=== PATIENT | female | born 1970 | race Caucasian/White ===

== ENCOUNTER → 2017-08-02 | Outpatient (CLI) | payer BC | LOC: RAD 10:51 | PROVIDERS: ATTEND Nurse Practitioner Family | DX: Z53.8 Procedure and treatment not carried out for other reasons (principal); R53.83 Other fatigue ==

== ENCOUNTER → 2017-08-05 | Outpatient (CLI) | payer BC ==
[2017-08-05] MEDS: GADOBUTROL 10 MMOL/10 ML (GADAVIST) VIAL IV ONE (14:38)
--- NOTE | 2017-08-05 15:46 | Diagnostic Imaging Report ---
PROCEDURE: MR imaging of the brain with and without contrast. TECHNIQUE: Multiplanar, multisequence MR imaging of the brain was performed with and without contrast. INDICATION: Stuttering. Chronic headaches. COMPARISON: None. FINDINGS: Examination limited by motion artifact. No abnormal intracranial signal, enhancement, restricted water diffusion or hemosiderin deposition. Partially empty sella. Morphology is otherwise unremarkable including the major midline structures, posterior fossa and cerebellar pontine angle. The orbits are negative on this nondedicated exam. No hydrocephalus or extra-axial fluid collections. Normal intracranial flow voids. The paranasal sinuses and mastoids are clear. Normal bone marrow signal. IMPRESSION: 1. Examination limited by motion artifact. 2. Normal MRI of the brain without and with IV contrast. Dictated by: Dictated on workstation # [id number]
== END ==
LOC: RAD 12:47
PROVIDERS: ATTEND Nurse Practitioner Family
DX: F80.81 Childhood onset fluency disorder (principal); R51 Headache; R53.83 Other fatigue
CPT/HCPCS: 70553

== ENCOUNTER → 2017-11-16 | Outpatient (CLI) | payer BC ==
--- NOTE | 2017-11-16 12:47 | Diagnostic Imaging Report ---
EXAM: DEXA scan INDICATION: Screening for osteoporosis COMPARISON: There are no prior studies available for comparison. FINDINGS: The bone mineral density in the hips and spine was measured. The T score for the spine is -1.1. This does indicate mild osteopenia. The T score for the left hip is 0.1 and for the right hip -0.4. These values are within normal limits. IMPRESSION: The bone mineral density in the hips is within normal limits but there is mild osteopenia of the spine. Dictated by: Dictated on workstation # [id number]
== END ==
LOC: RAD 11:19
PROVIDERS: ATTEND Nurse Practitioner Family
DX: M81.0 Age-related osteoporosis without current pathological fracture (principal); M85.88 Other specified disorders of bone density and structure, other site
CPT/HCPCS: 77080

== ENCOUNTER 2017-12-18 10:43 | Emergency (ER) | payer BC ==
[~2017-12-18] VITALS: Ht 152.4 cm; Wt 90.7 kg
--- OUTSIDE RECORDS SUMMARY | 2017-12-18 10:47 | XMS REPORT | CCD ---
Author Author KEISHA CAZARES Unknown Address [address] [place] [address] Care Team Providers Care Vet Tech Name Role Phone MOORE, AMBER DO Attphys MOORE, AMBER DO Prisurg Allergies Unknown or Not Available. Active Medications Unknown or Not Available. Problems Unknown or Not Available. Procedures Procedure Code Procedure Type Date CT ABD AND PELVIS W/O CONTRAST 806816494 SNOMED CT 2016 CULTURE BLOOD 64613356 SNOMED CT 07/03/2016 LACTIC ACID 2346974 SNOMED CT 07/03/2016 C REACTIVE PROTEIN 19589779 SNOMED CT 07/03/2016 UA ROUTINE C&S IF IND 118858437 SNOMED CT 07/03/2016 COMPREHENSIVE METABOLIC PANEL 614017851 SNOMED CT 2016 CBC W/ AUTO DIFF (RFLX MAN DIFF IF IND) 3482635 SNOMED CT 07/03/2016 ^UA WITH MICRO 723996444 SNOMED CT 07/03/2016 ^CBC W/ MANUAL DIFF 48088097 SNOMED CT 07/03/2016 Results COMPREHENSIVE METABOLIC PANEL - Collect Date/Time: 07/03/2016 17:25 Test Name Code Test Result Test Units Test Ref Range GLUCOSE 2345-7 124 MG/DL L=70 H=100 SODIUM 2951-2 139 MEQ/L L=135 H=148 POTASSIUM 2823-3 4.1 MEQ/L L=3.5 H=5.3 CHLORIDE 2075-0 104 MEQ/L L=96 H=110 CO2 2028-9 23 MEQ/L L=22 H=29 BUN 3094-0 8 MG/DL L=8 H=22 CREATININE 2160-0 0.8 MG/DL L=0.6 H=1.6 SGOT/AST 1920-8 33 IU/L L=10 H=40 SGPT/ALT 1742-6 50 IU/L L=8 H=54 ALK PHOS 6768-6 62 IU/L L=35 H=115 TOTAL PROTEIN 2885-2 7.3 G/DL L=5.5 H=8.5 ALBUMIN 1751-7 4.2 G/DL L=3.1 H=5.4 TOTAL BILI 1975-2 0.3 MG/DL L=0.0 H=1.5 CALCIUM 10917-4 9.1 MG/DL L=8.2 H=10.6 AGE 45 yrs GFR NonAA 78 GFR AA 95 eGFR >60 N/A eGFR AA* >60 N/A CBC W/ AUTO DIFF (RFLX MAN DIFF IF IND) - Collect Date/Time: 07/03/2016 17:25 Test Name Code Test Result Test Units Test Ref Range WBC 49133-3 5.1 TH/CMM L=4.5 H=10.8 RBC 789-8 5.29 ML/CMM L=4.20 H=5.40 HGB 718-7 15.3 G/DL L=12.0 H=16.0 HCT 4544-3 46.5 % L=37.0 H=47.0 MCV 88 FL L=81 H=99 MCH 28.9 PG L=27.0 H=33.0 MCHC 32.9 G/DL L=31.0 H=36.0 RDW SD 42 FL L=36 H=50 RDW CV 13.1 % L=0.0 H=14.8 MPV 9.6 FL L=9.3 H=12.5 PLT 777-3 197 TH/CMM L=130 H=440 NRBC# 0.00 TH/CMM L=0.00 H=0.00 NRBC% 0.0 /100WBC L=0.0 H=2.0 %NEUT 71.8 % %LYMP 18.3 % %MONO 8.9 % %EOS 0.4 % %BASO 0.4 % #NEUT 3.64 TH/CMM L=2.10 H=8.20 #LYMP 0.93 TH/CMM L=0.90 H=5.20 #MONO 0.45 TH/CMM L=0.16 H=1.00 #EOS 0.02 TH/CMM L=0.00 H=0.80 #BASO 0.02 TH/CMM L=0.00 H=0.20 SEGS 53 % BANDS 14 % LYMPHS 23 % MONOS 10 % MANUAL DIFF SEE BELOW N/A UA ROUTINE C&S IF IND - Collect Date/Time: 07/03/2016 19:08 Test Name Code Test Result Test Units Test Ref Range COLOR YELLOW N/A NL: YELLOW APPEARANCE CLEAR N/A NL: CLEAR SPEC GRAV 1.015 N/A NL: 1.002 - 1.022 pH 8.0 N/A NL: 5 - 9 PROTEIN NEGATIVE N/A NL: NEGATIVE mg/dl GLUCOSE NEGATIVE N/A NL: NEGATIVE mg/dl KETONE NEGATIVE N/A NL: NEGATIVE mg/dl BILIRUBIN NEGATIVE N/A NL: NEGATIVE BLOOD SMALL N/A NL: NEGATIVE NITRITE NEGATIVE N/A NL: NEGATIVE LEUK SCREEN NEGATIVE N/A NL: NEGATIVE MICRO INDICATED? SEE BELOW N/A WBC/HPF RARE N/A NL: NEGATIVE RBC/HPF 10-20 N/A NL: NEGATIVE CASTS/LPF NEGATIVE N/A NL: NEGATIVE CRYSTALS NEGATIVE N/A NL: NEGATIVE MUCOUS THRDS FEW N/A NL: NEGATIVE BACTERIA FEW N/A NL: NEGATIVE EPITH CELLS FEW SQUAMOUS N/A NL: NEGATIVE TRICHOMONAS NEGATIVE N/A NL: NEGATIVE YEAST NEGATIVE N/A NL: NEGATIVE CULT SET UP? NO N/A TICK PANEL - Collect Date/Time: 07/03/2016 17:25 Test Name Code Test Result Test Units Test Ref [place] [address]-4 <0.91 ISR 0.00-0.90 Lyme Disease Ab, Quant,IgM 5064-1 <0.80 index 0.00- 0.79 [facility] Spotted Fever,IgM 72467-5 0.27 index 0.00 -0.89 RMSF, IgG, EIA 63497-2 Negative N/A Negative E. chaffeensis ([facility]) IgGTiter 50774-0 Negative N/A Neg:<1:64 E. chaffeensis ([facility]) IgMTiter 56452-0 Negative N/A Neg:<1:20 C REACTIVE PROTEIN - Collect Date/Time: 07/03/2016 17:25 Test Name Code Test Result Test Units Test Ref Range C REACTIVE PROTEIN 1987- 4.8 MG/DL L=0.0 H= 1.0 LACTIC ACID - Collect Date/Time: 07/03/2016 17:25 Test Name Code Test Result Test Units Test Ref Range LACTIC ACID 2524-7 1.2 mmol/L L=0.5 H=1.6 Function Status Unknown or Not Available. History of Immunizations Unknown or Not Available. Plan of Treatment Unknown or Not Available. Social History Smoking Status Code Start Date End Date Current some day smoker [id number] Vital Signs Unknown or Not Available. Function Status Unknown or Not Available. Goals Unknown or Not Available. ASSESSMENTS Unknown or Not Available. Health Concerns Section Unknown or Not Available.
--- OUTSIDE RECORDS SUMMARY | 2017-12-18 10:47 | XMS REPORT | CCD ---
Author Author KEISHA CAZARES Unknown Address [address] [place], [place] [id number] Care Team Providers Care Enterprise Resource Planning Consultant Name Role Phone LAURA BREEN MD Attphys LAURA BREEN MD Prisurg Vital Signs Unknown or Not Available. Allergies Unknown or Not Available. Procedures Procedure Code Procedure Type Date CX CHEST [address] 12/02/[address] 12/02/[address] 12/02/2015 TROPONIN-I ADV 271341760 SNOMED CT 12/02/2015 COMPREHENSIVE METABOLIC PANEL 674180070 SNOMED CT 2015 CBC W/ AUTO DIFF (RFLX MAN DIFF IF IND) 3848435 SNOMED CT 12/02/2015 ^CBC W/AUTO DIFF 7680846 SNOMED CT 12/02/2015 History of Immunizations Unknown or Not Available. Problems Unknown or Not Available. Results COMPREHENSIVE METABOLIC PANEL - Collect Date/Time: 12/02/2015 01:35 Test Name Code Test Result Test Units Test Ref Range GLUCOSE 2345-7 161 MG/DL L=70 H=100 SODIUM 2951-2 142 MEQ/L L=135 H=148 POTASSIUM 2823-3 3.6 MEQ/L L=3.5 H=5.3 CHLORIDE 2075-0 108 MEQ/L L=96 H=110 CO2 2028-9 21 MEQ/L L=22 H=29 BUN 3094-0 11 MG/DL L=8 H=22 CREATININE 2160-0 0.8 MG/DL L=0.6 H=1.6 SGOT/AST 1920-8 16 IU/L L=10 H=40 SGPT/ALT 1742-6 28 IU/L L=8 H=54 ALK PHOS 6768-6 69 IU/L L=35 H=115 TOTAL PROTEIN 2885-2 6.7 G/DL L=5.5 H=8.5 ALBUMIN 1751-7 4.1 G/DL L=3.1 H=5.4 TOTAL BILI 1975-2 0.2 MG/DL L=0.0 H=1.5 CALCIUM 60956-5 9.1 MG/DL L=8.2 H=10.6 AGE 45 yrs GFR NonAA 78 GFR AA 95 eGFR >60 N/A eGFR AA* >60 N/A CBC W/ AUTO DIFF (RFLX MAN DIFF IF IND) - Collect Date/Time: 12/02/2015 01:35 Test Name Code Test Result Test Units Test Ref Range WBC 30675-7 10.1 TH/CMM L=4.5 H=10.8 RBC 789-8 5.08 ML/CMM L=4.20 H=5.40 HGB 718-7 15.0 G/DL L=12.0 H=16.0 HCT 4544-3 44.9 % L=37.0 H=47.0 MCV 88 FL L=81 H=99 MCH 29.5 PG L=27.0 H=33.0 MCHC 33.4 G/DL L=31.0 H=36.0 RDW SD 42 FL L=36 H=50 RDW CV 12.9 % L=0.0 H=14.8 MPV 10.1 FL L=9.3 H=12.5 PLT 777-3 288 TH/CMM L=130 H=440 NRBC# 0.00 TH/CMM L=0.00 H=0.00 NRBC% 0.0 /100WBC L=0.0 H=2.0 %NEUT 50.5 % %LYMP 39.6 % %MONO 6.6 % %EOS 2.5 % %BASO 0.5 % #NEUT 5.09 TH/CMM L=2.10 H=8.20 #LYMP 3.98 TH/CMM L=0.90 H=5.20 #MONO 0.66 TH/CMM L=0.16 H=1.00 #EOS 0.25 TH/CMM L=0.00 H=0.80 #BASO 0.05 TH/CMM L=0.00 H=0.20 MANUAL DIFF NOT IND N/A BNP - Collect Date/Time: 12/02/2015 01:35 Test Name Code Test Result Test Units Test Ref Range BNP 84995-3 41 PG/ML L=0 H=100 TROPONIN-I ADV - Collect Date/Time: 12/02/2015 01:35 Test Name Code Test Result Test Units [place] [address]-6 <0.04 ng/mL L=0.04 H= 0.40 TSH - Collect Date/Time: 12/02/2015 01:35 Test Name Code Test Result Test Units Test Ref Range TSH 99571-1 1.69 mIU/L L=0.35 H=4.94 Active Medications Unknown or Not Available. Medications Administered During Visit Unknown or Not Available. Encounters Encounter Diagnosis Diagnosis Code Start Date Paroxysmal atrial fibrillation [id number] 12/02/2015 Social History Smoking Status Code Start Date End Date Current some day smoker [id number] Patient Decision Aids Unknown or Not Available. Discharge Instructions You were admitted to [facility] on 12/02/2015 01:05 with a principal diagnosis of Paroxysmal atrial fibrillation You had the following tests done: BNP CBC W/ AUTO DIFF (RFLX MAN DIFF IF IND) COMPREHENSIVE METABOLIC PANEL TROPONIN-I ADV TSH You were discharged from [facility] on 12/02/2015 03:18 Should you have any questions prior to discharge, please contact a member of your healthcare team. If you have left the hospital and have any questions, please contact your primary care physician. Chief Complaint and Reason For Visit Chief Complaint Date of Onset PALPITATIONS Function Status Unknown or Not Available. Plan of Care Unknown or Not Available. Referral/Transition of Care Unknown or Not Available.
--- OUTSIDE RECORDS SUMMARY | 2017-12-18 10:47 | XMS REPORT | CCD ---
Author Author LISA ROWAN Organization Unknown Address [address] [place] [address] Care Team Providers Care Data Processing Equipment Repairer Name Role Phone AMBER MOORE Attphys LAURA BREEN MD Prisurg Allergies Unknown or Not Available. Active Medications Unknown or Not Available. Problems Unknown or Not Available. Procedures Procedure Code Procedure Type Date CT ABD AND PELVIS W/O CONTRAST 798612404 [facility] CT 2015 ABDOMEN ONE VIEW 000159730 [facility] CT 11/21/2015 CX CHEST [address] 11/21/2015 C REACTIVE PROTEIN 17695861 [facility] CT 11/21/2015 CULTURE BLOOD 73154761 SNOMED CT 11/21/2015 LACTIC ACID 5840797 SNOM[address] 11/21/[address] 11/21/2015 UA ROUTINE C&S IF IND 825689616 SNOMED CT 11/21/2015 TROPONIN-I ADV 669825155 [facility] CT 11/21/2015 COMPREHENSIVE METABOLIC PANEL 489074683 SNOMED CT 2015 CBC W/ AUTO DIFF (RFLX MAN DIFF IF IND) 3190361 SNOMED CT 11/21/2015 ^UA WITH MICRO 671914652 SNOMED CT 11/21/2015 ^CBC W/AUTO DIFF 9066596 SNOMED CT 11/21/2015 Results COMPREHENSIVE METABOLIC PANEL - Collect Date/Time: 11/21/2015 19:05 Test Name Code Test Result Test Units Test Ref Range GLUCOSE 2345-7 141 MG/DL L=70 H=100 SODIUM 2951-2 141 MEQ/L L=135 H=148 POTASSIUM 2823-3 3.4 MEQ/L L=3.5 H=5.3 CHLORIDE 2075-0 108 MEQ/L L=96 H=110 CO2 2028-9 20 MEQ/L L=22 H=29 BUN 3094-0 14 MG/DL L=8 H=22 CREATININE 2160-0 0.8 MG/DL L=0.6 H=1.6 SGOT/AST 1920-8 18 IU/L L=10 H=40 SGPT/ALT 1742-6 28 IU/L L=8 H=54 ALK PHOS 6768-6 68 IU/L L=35 H=115 TOTAL PROTEIN 2885-2 6.8 G/DL L=5.5 H=8.5 ALBUMIN 1751-7 4.1 G/DL L=3.1 H=5.4 TOTAL BILI 1975-2 0.4 MG/DL L=0.0 H=1.5 CALCIUM 43352-5 9.2 MG/DL L=8.2 H=10.6 AGE 45 yrs GFR NonAA 78 GFR AA 95 eGFR >60 N/A eGFR AA* >60 N/A MAGNESIUM - Collect Date/Time: 11/21/2015 19:05 Test Name Code Test Result Test Units Test Ref Range MAGNESIUM 85511-9 2.1 MG/DL L=1.7 H=2.8 CBC W/ AUTO DIFF (RFLX MAN DIFF IF IND) - Collect Date/Time: 11/21/2015 19:05 Test Name Code Test Result Test Units Test Ref Range WBC 60265-5 12.0 TH/CMM L=4.5 H=10.8 RBC 789-8 4.99 ML/CMM L=4.20 H=5.40 HGB 718-7 14.6 G/DL L=12.0 H=16.0 HCT 4544-3 43.8 % L=37.0 H=47.0 MCV 88 FL L=81 H=99 MCH 29.3 PG L=27.0 H=33.0 MCHC 33.3 G/DL L=31.0 H=36.0 RDW SD 42 FL L=36 H=50 RDW CV 13.1 % L=0.0 H=14.8 MPV 10.4 FL L=9.3 H=12.5 PLT 777-3 290 TH/CMM L=130 H=440 NRBC# 0.00 TH/CMM L=0.00 H=0.00 NRBC% 0.0 /100WBC L=0.0 H=2.0 %NEUT 60.3 % %LYMP 30.4 % %MONO 6.8 % %EOS 1.8 % %BASO 0.4 % #NEUT 7.24 TH/CMM L=2.10 H=8.20 #LYMP 3.65 TH/CMM L=0.90 H=5.20 #MONO 0.81 TH/CMM L=0.16 H=1.00 #EOS 0.22 TH/CMM L=0.00 H=0.80 #BASO 0.05 TH/CMM L=0.00 H=0.20 MANUAL DIFF NOT IND N/A UA ROUTINE C&S IF IND - Collect Date/Time: 11/21/2015 19:30 Test Name Code Test Result Test Units Test Ref Range COLOR YELLOW N/A NL: YELLOW APPEARANCE CLEAR N/A NL: CLEAR SPEC GRAV >=1.030 N/A NL: 1.002 - 1.022 pH 6.0 N/A NL: 5 - 9 PROTEIN NEGATIVE N/A NL: NEGATIVE mg/dl GLUCOSE NEGATIVE N/A NL: NEGATIVE mg/dl KETONE TRACE N/A NL: NEGATIVE mg/dl BILIRUBIN NEGATIVE N/A NL: NEGATIVE BLOOD MODERATE N/A NL: NEGATIVE NITRITE NEGATIVE N/A NL: NEGATIVE LEUK SCREEN NEGATIVE N/A NL: NEGATIVE MICRO INDICATED? SEE BELOW N/A WBC/HPF RARE N/A NL: NEGATIVE RBC/HPF 0-5 N/A NL: NEGATIVE CASTS/LPF 1+ HYALINE N/A NL: NEGATIVE CRYSTALS NEGATIVE N/A NL: NEGATIVE MUCOUS THRDS 1+ N/A NL: NEGATIVE BACTERIA FEW N/A NL: NEGATIVE EPITH CELLS FEW SQUAMOUS N/A NL: NEGATIVE TRICHOMONAS NEGATIVE N/A NL: NEGATIVE YEAST NEGATIVE N/A NL: NEGATIVE CULT SET UP? NO N/A C REACTIVE PROTEIN - Collect Date/Time: 11/21/2015 19:05 Test Name Code Test Result Test Units Test Ref Range C REACTIVE PROTEIN 1988-5 2.0 MG/DL L=0.0 H= 1.0 TROPONIN-I ADV - Collect Date/Time: 11/21/2015 19:05 Test Name Code Test Result Test Units [place] [address]-2 <0.04 ng/mL L=0.04 H= 0.40 LACTIC ACID - Collect Date/Time: 11/21/2015 19:05 Test Name Code Test Result Test Units Test Ref Range LACTIC ACID 2524-7 1.7 mmol/L L=0.5 H=1.6 Function Status Unknown or Not Available. History of Immunizations Unknown or Not Available. Plan of Treatment Unknown or Not Available. Social History Smoking Status Code Start Date End Date Current some day smoker [id number] Vital Signs Unknown or Not Available. Function Status Unknown or Not Available. Goals Unknown or Not Available. ASSESSMENTS Unknown or Not Available. Health Concerns Section Unknown or Not Available.
[2017-12-18] MEDS ORDERED: NS IV 1000 ML 1,000 ML IV SCH (11:06)
--- NOTE | 2017-12-18 11:14 | ED Abdominal Pain ---
General Chief Complaint: Abdominal/GI Problems Stated Complaint: N/V Nursing Triage Note: p states three weeks ago she began to have foul smelling belching that progressed into pain after eating in the RUQ. today the pt began to develope nausea and vomiting with the pain. upon presentation denies nausea. Sepsis Screen: No Definite Risk Source of Information: Patient Exam Limitations: No Limitations History of Present Illness Date Seen by Provider: Dec 18, 2017 Time Seen by Provider: 10:56 Initial Comments The patient presents to the ER by private conveyance with her and chief complaint that she's been having some abdominal pain in her epigastric radiating to her right upper quadrant off-and-on for the past 3-4 weeks. She says about 4-6 weeks ago she started taking a new injectable class of antihyperglycemic known as GLP1 receptor agonists and she is on her third brand. She did not like the style of injector on the second one in the first one she had some issues tolerating it. She did go see her doctor on Monday and they did labs and urine and told her everything looked okay. She's continued to have nausea vomiting and worsening pain and so she was instructed to go to the ER if this occurred. She says her blood sugars were getting better on the injectables but for the past 2 days they've been high as high as 160 and an hour later down to 60 with sweats, cool clammy feeling. She fixed by eating something. She also takes metformin twice daily. She has a history of C-sections , hysterectomy and both of her ovaries removed for large cysts. She had her hysterectomy done for fibroid tumors. She also has endometriosis. She has not had any other abdominal surgeries. She's had no fevers but she's measured her temperature to be as high as 99.6. She's not having any nausea presently but her pain is about a 7 out of 10. She's been using tramadol for her pain. She does not feel that this helped much. She has had a colonoscopy but she does not member any mention of diverticulosis. She's never had an EGD. She does have a history of GERD and has been using omeprazole for years and her PCP started her on Carafate 4 days ago. She also states she has a history of atrial fibrillation and is not on any blood thinners but follows with the urgent care physician assistant that comes down and also be go from [facility]. Allergies and Home Medications Allergies Coded Allergies: No Known Drug Allergies (Unverified , 08/05/17) Home Medications Ondansetron 4 Mg Tab.rapdis, 4 MG PO Q6H PRN for NAUSEA/VOMITING Prescribed by: MAYA LAY on 12/18/17 0748 Patient Home Medication List Home Medication List Reviewed: Yes Review of Systems Review of Systems Constitutional: No chills, No diaphoresis; malaise EENTM: No Blurred Vision, No Double Vision Respiratory: Denies Cough, Denies Shortness of Air Cardiovascular: Denies Chest Pain, Denies Lightheadedness Gastrointestinal: Denies Abdomen Distended; Abdominal Pain; Denies Constipated , Denies Diarrhea; Nausea, Vomiting Genitourinary: Denies Burning, Denies Discharge Musculoskeletal: No back pain, No joint pain Skin: No pruritus, No rash Psychiatric/Neurological: Denies Headache, Denies Numbness Past Zdkivok-Kblaff-Pagfmd Hx Patient Social History Alcohol Use: Denies Use Recreational Drug Use: No Smoking Status: Never a Smoker Recent Foreign Travel: No Contact w/Someone Who Travel: No Recent Infectious Disease Expo: No Past Medical History : No LINESPERSON 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 oz. [id number]; BMI Method:Stated General Appearance: WD/WN, no apparent distress HEENT: PERRL/EOMI, pharynx normal Neck: non-tender, normal inspection Respiratory: chest non-tender, lungs clear, normal breath sounds, no respiratory distress, no accessory muscle use Cardiovascular: normal peripheral pulses, regular rate, rhythm, no edema Gastrointestinal: normal bowel sounds, guarding; No rebound; tenderness ( moderate to severe with Phillips sign) Progress/Results/Core Measures Results/Orders Lab Results Laboratory Tests Test 12/18/17 11:28 Range/Units White Blood Count 12.9 H 4.3-11.0 10^3/uL Red Blood Count 5.65 4.35-5.85 10^6/uL Hemoglobin 15.4 11.5-16.0 G/DL Hematocrit 45 35-52 % Mean Corpuscular Volume 80 80-99 FL Mean Corpuscular Hemoglobin 27 25-34 PG Mean Corpuscular Hemoglobin Concent 34 32-36 G/DL Red Cell Distribution Width 15.7 H 10.0-14.5 % Platelet Count 409 H 130-400 10^3/uL Mean Platelet Volume 10.6 H 7.4-10.4 FL Neutrophils (%) (Auto) 62 42-75 % Lymphocytes (%) (Auto) 25 12-44 % Monocytes (%) (Auto) 7 0-12 % Eosinophils (%) (Auto) 5 0-10 % Basophils (%) (Auto) 1 0-10 % Neutrophils # (Auto) 8.0 H 1.8-7.8 X 10^3 Lymphocytes # (Auto) 3.3 1.0-4.0 X 10^3 Monocytes # (Auto) 1.0 0.0-1.0 X 10^3 Eosinophils # (Auto) 0.6 H 0.0-0.3 10^3/uL Basophils # (Auto) 0.1 0.0-0.1 10^3/uL Sodium Level 136 135-145 MMOL/L Potassium Level 4.2 3.6-5.0 MMOL/L Chloride Level 102 98-107 MMOL/L Carbon Dioxide Level 22 21-32 MMOL/L Anion Gap 12 5-14 MMOL/L Blood Urea Nitrogen 6 L 7-18 MG/DL Creatinine 0.75 0.60-1.30 MG/DL Estimat Glomerular Filtration Rate > 60 BUN/Creatinine Ratio 8 Glucose Level 96 70-105 MG/DL Calcium Level 9.5 8.5-10.1 MG/DL Corrected Calcium 9.3 8.5-10.1 MG/DL Magnesium Level 2.6 H 1.8-2.4 MG/DL Total Bilirubin 0.4 0.1-1.0 MG/DL Aspartate Amino Transf (AST/SGOT) 20 5-34 U/L Alanine Aminotransferase (ALT/SGPT) 26 0-55 U/L Alkaline Phosphatase 51 40-136 U/L Total Protein 7.8 6.4-8.2 GM/DL Albumin 4.3 3.2-4.5 GM/DL Lipase 7 L 8-78 U/L My Orders Orders - ALIREZA,MAYA J Cbc With Automated Diff (12/18/17 11:06) Comprehensive Metabolic Panel (12/18/17 11:06) Lipase (12/18/17 11:06) Magnesium (12/18/17 11:06) Saline Lock/Iv-Start (12/18/17 11:06) Ns Iv 1000 Ml (Sodium Chloride 0.9%) (12/18/17 11:06) Ketorolac Injection (Toradol Injection) (12/18/17 11:15) Ct Abdomen/Pelvis W (12/18/17 11:19) Iohexol Injection (Omnipaque 350 Mg/Ml 1 (12/18/17 11:30) Ns (Ivpb) (Sodium Chloride 0.9%) (12/18/17 11:30) Ondansetron Injection (Zofran Injectio (12/18/17 12:45) Lidocaine 2% Viscous 15 Ml (Xylocaine Vi (12/18/17 12:45) Famotidine Tablet (Pepcid Tablet) (12/18/17 12:43) Antacid Suspension (Mylanta Suspension (12/18/17 12:45) Medications Given in ED Current Medications Medications Dose Ordered Sig/Greg Route Start Time Stop Time Status Last Admin Dose Admin Al Hydrox/Mg Hydrox/Simethicone 30 ml ONCE ONCE PO 12/18/17 12:45 12/18/17 12:46 DC 12/18/17 12:57 30 ML Ketorolac Tromethamine 15 mg ONCE ONCE IVP 12/18/17 11:15 12/18/17 11:16 DC 12/18/17 11:39 15 MG Lidocaine HCl 15 ml ONCE ONCE PO 12/18/17 12:45 12/18/17 12:46 DC 12/18/17 12:57 15 ML Ondansetron HCl 4 mg ONCE ONCE IVP 12/18/17 12:45 12/18/17 12:46 DC 12/18/17 12:57 4 MG Vital Signs/I&O 12/18/17 10:51 Temp 98.8 Pulse 88 Resp 20 B/P (MAP) 149/93 (111) Blood Pressure Mean: 111 Progress Progress Note #1: Time: 11:14 Progress Note IV fluids, labs included lipase and magnesium, Toradol for pain to start. She's declining anything for nausea right now. We have offered to do a UA but she says she just had checked Monday and is not having any symptoms. She does have right upper quadrant pains were in a start with a CT with contrast of her abdomen and pelvis to observe the gallbladder, pancreas and colon. She does not have any fever or tachycardia today. The other consideration would be that her symptoms started shortly after using the GLP1 agonists which are known to have pretty prominent GI symptoms similar to what she describes. Her symptoms are certainly after eating but they seemed to come right after eating as opposed to an hour later. Progress Note #2: Time: 12:[address] imaging is unrevealing. Labs are unrevealing of any pathology. Her all 3 cell lines are high or on the upper limit of normal which could be from her nausea vomiting or could be from dehydration however the BUNs is not elevated. Clinical exam she does look a little dry. We put some fluids and antinausea medicine and since is nothing acutely going on with recommend she follow up working up her gallbladder outpatient with her primary care doctor. Would also recommend some nausea medicine such as Zofran instead of Phenergan during the day and finally if nothing else was found acutely the primary care team could consider the GLP1 agonists. Her nausea has significantly improved but she still having a little bit sore give another round of Zofran and a GI cocktail to help us examine the esophagus and stomach lining see if this is causing her pain. She says her pain has improved significantly as well and is almost gone but still dull and aching about 2-3 out of 10. Progress Note #3: Time: 13:47 Progress Note The patient's nausea is gone and she notes that the GI cocktail made her pain go away completely and nearly immediately. We will recommend that she follow up with the PCP to discuss setting up an EGD outpatient. Diagnostic Imaging Diagonstic Imaging: CT (with contrast) Plain Films/CT/US/NM/MRI: abdomen, pelvis Comments NAME: CAROLINA FIELDS [facility] REC#: [id number] PT STATUS: REG ER : 1970 PHYSICIAN: MAYA LAY MD ADMIT DATE: 12/18/17/ER Draft Date of Exam:12/18/17 CT ABDOMEN/PELVIS W INDICATION: Abdominal pain x3 weeks with vomiting and low-grade fever. CT of the abdomen and pelvis obtained with IV contrast bolus. There is no prior study for comparison. FINDINGS: The visualized portions of the lung bases are clear. There were no pleural fluid collections. There is no free intraperitoneal air. The liver shows diffuse low-density change compatible with fatty infiltration. There is no focal liver lesion. Gallbladder appears unremarkable. The spleen, adrenals, and pancreas are normal in appearance. Kidneys bilaterally are unremarkable. There is no retroperitoneal mass or adenopathy. There is no ascites or abnormal fluid collection. Visualized bowel loops show no bowel wall thickening or obstruction. The appendix appears normal. There is no pelvic mass or free fluid. Patient appears to have had prior hysterectomy. IMPRESSION: No abdominal mass or abnormal fluid collection. Fatty infiltration of the liver is noted. Evidence of previous hysterectomy. No acute process is visualized in the abdomen or pelvis. Dictated on workstation # [id number] Dict: 12/18/17 1222 Trans: 12/18/17 1228 [id number] Interpreted by: MINAL VÁZQUEZ MD Electronically signed by: Reviewed: Reviewed by Me Departure Impression Primary Impression: Abdominal pain Qualified Codes: R10.11 - Right upper quadrant pain Additional Impressions: Nausea vomiting and diarrhea Gastritis Qualified Codes: K29.00 - Acute gastritis without bleeding Disposition: HOME, SELF-CARE Condition: Improved Departure-Patient Inst. Decision time for Depature: 13:48 Referrals: BRANDT,LOCAL PHYSICIAN (PCP) Primary Care Physician VIDYA YOUNG (Family) Primary Care Physician Patient Instructions: Gastritis (DC) Add. Discharge Instructions: Continue to use your omeprazole and Carafate as prescribed. Take Zantac 1 tablet twice a day for the next 2-4 weeks in addition. If you have nausea you can use Zofran 1 tablet every 6 hours as needed in addition to the Phenergan. Get a follow-up appointment with your primary care doctor in the next 1-2 weeks to continue working up your symptoms with an EGD. If your pain gets worse or you develop fevers above 102.5F or you have intractable nausea vomiting or other worrisome symptoms then you should return to the nearest ER for further evaluation. All discharge instructions reviewed with patient and/or family. Voiced understanding. Scripts Ondansetron (Ondansetron Odt) 4 Mg Tab.rapdis 4 MG PO Q6H PRN for NAUSEA/VOMITING for 14 Days, #12 TAB 0 Refills Prov: MAYA LAY 12/18/17 Work/School Note: Work Release Form Date Seen in the Emergency Department: Dec 18, 2017 Return to Work: Dec 21, 2017 Restrictions: No Restrictions MAYA LAY Dec 18, 2017 11:14
[2017-12-18] MEDS ORDERED: KETOROLAC 30 MG/ML VIAL IVP ONE (11:15)
[2017-12-18] MEDS ORDERED: IOHEXOL 350 MG/ML 100 ML (OMNIPAQUE 350) VIAL IV ONE (11:30)
[2017-12-18] MEDS ORDERED: NS 250 ML (IVPB) BAG IV ONE (11:30)
[2017-12-18 11:39] LABS: BASOPHILS # (AUTO) 0.1 10^3/uL (0.0-0.1); BASOPHILS % (AUTO) 1 % (0-10); EOSINOPHILS # (AUTO) 0.6 10^3/uL (0.0-0.3); EOSINOPHILS % (AUTO) 5 % (0-10); HEMATOCRIT 45 % (35-52); HEMOGLOBIN 15.4 G/DL (11.5-16.0); LYMPHOCYTES # (AUTO) 3.3 X 10^3 (1.0-4.0); LYMPHOCYTES % (AUTO) 25 % (12-44); MEAN CORPUSCULAR HEMOGLOBIN 27 PG (25-34); MEAN CORPUSCULAR HGB CONC 34 G/DL (32-36); MEAN CORPUSCULAR VOLUME 80 FL (80-99); MEAN PLATELET VOLUME 10.6 FL (7.4-10.4); MONOCYTES % (AUTO) 7 % (0-12); NEUTROPHILS % (AUTO) 62 % (42-75); PLATELET COUNT 409 10^3/uL (130-400); RED BLOOD COUNT 5.65 10^6/uL (4.35-5.85); RED CELL DISTRIBUTION WIDTH 15.7 % (10.0-14.5); WHITE BLOOD COUNT 12.9 10^3/uL (4.3-11.0)
[2017-12-18 12:01] LABS: ALANINE AMINOTRANSFERASE 26 U/L (0-55); ALBUMIN 4.3 GM/DL (3.2-4.5); ALKALINE PHOSPHATASE 51 U/L (40-136); BILIRUBIN,TOTAL 0.4 MG/DL (0.1-1.0); BUN/CREATININE RATIO 8; CALCIUM 9.5 MG/DL (8.5-10.1); CARBON DIOXIDE 22 MMOL/L (21-32); CHLORIDE 102 MMOL/L (98-107); CREATININE SERUM 0.75 MG/DL (0.60-1.30); GFR ESTIMATED > 60; GLUCOSE 96 MG/DL (70-105); LIPASE 7 U/L (8-78); MAGNESIUM 2.6 MG/DL (1.8-2.4); POTASSIUM 4.2 MMOL/L (3.6-5.0); SODIUM 136 MMOL/L (135-145); TOTAL PROTEIN 7.8 GM/DL (6.4-8.2)
--- NOTE | 2017-12-18 12:28 | Diagnostic Imaging Report ---
INDICATION: Abdominal pain x3 weeks with vomiting and low-grade fever. CT of the abdomen and pelvis obtained with IV contrast bolus. There is no prior study for comparison. FINDINGS: The visualized portions of the lung bases are clear. There were no pleural fluid collections. There is no free intraperitoneal air. The liver shows diffuse low-density change compatible with fatty infiltration. There is no focal liver lesion. Gallbladder appears unremarkable. The spleen, adrenals, and pancreas are normal in appearance. Kidneys bilaterally are unremarkable. There is no retroperitoneal mass or adenopathy. There is no ascites or abnormal fluid collection. Visualized bowel loops show no bowel wall thickening or obstruction. The appendix appears normal. There is no pelvic mass or free fluid. Patient appears to have had prior hysterectomy. IMPRESSION: No abdominal mass or abnormal fluid collection. Fatty infiltration of the liver is noted. Evidence of previous hysterectomy. No acute process is visualized in the abdomen or pelvis. Dictated by: Dictated on workstation # [id number]
[2017-12-18] MEDS ORDERED: FAMOTIDINE 20 MG (PEPCID) TABLET PO STA (12:43)
[2017-12-18] MEDS ORDERED: LIDOCAINE 2% VISCOUS 15 ML UDC PO ONE (12:45)
[2017-12-18] MEDS ORDERED: ONDANSETRON 4 MG/2 ML (SDV) Z0FRAN IVP ONE (12:45)
[2017-12-18] MEDS ORDERED: ANTACID SUSP 30 ML UDC (MYLANTA) PO ONE (12:45)
[2017-12-18] MEDS ORDERED: ONDA4TAB11 PO (12:48)
[2017-12-18] MEDS ORDERED: HYDR25TA4 (13:52)
[2017-12-18] MEDS ORDERED: OMEP40CA36 (13:52)
[2017-12-18] MEDS ORDERED: BUSP30TA2 (13:52)
[2017-12-18] MEDS ORDERED: METF-397 (13:52)
[2017-12-18] MEDS ORDERED: FLUO20CA25 (13:52)
[2017-12-18] MEDS ORDERED: LINA72CA (13:52)
[2017-12-18] MEDS ORDERED: CLON0.1T (13:52)
[2017-12-18 14:07] VITALS: BP 124/80
== END 2017-12-18 14:07 | disposition home or self-care (01) ==
LOC: EDUNIT# 10:43 → ER 10:44
DX: K29.70 Gastritis, unspecified, without bleeding (principal); K21.9 Gastro-esophageal reflux disease without esophagitis; I48.91 Unspecified atrial fibrillation; Z91.14 Patient's other noncompliance with medication regimen; Z87.448 Personal history of other diseases of urinary system; Z98.890 Other specified postprocedural states; Z90.710 Acquired absence of both cervix and uterus
CPT/HCPCS: 36415; 74177; 80053; 83690; 83735; 85025

== ENCOUNTER 2018-01-01 06:14 | Outpatient (CLI) | payer BC ==
[~2018-01-01] VITALS: Ht 152.4 cm; Wt 90.7 kg
[~2018-01-01 06:14] MED LIST: BUSP30TA2 PO; CLON0.1T PO; FLUO20CA25 PO; HYDR25TA4 PO; LINA72CA PO; METF-397 PO; OMEP40CA36 PO; ONDA4TAB11 PO
[2018-01-01] MEDS ORDERED: SEMA1PEN SQ (12:30)
[2018-01-01] MEDS ORDERED: ORPH100T PO (12:30)
[2018-01-01] MEDS ORDERED: ASPI-586 PO (12:30)
== END 2018-01-01 12:32 | disposition home or self-care (01) ==
LOC: PREOP 06:14
PROVIDERS: ATTEND Surgery
DX: Z01.818 Encounter for other preprocedural examination (principal)

== ENCOUNTER 2018-01-03 09:48 | Day surgery (SDC) | payer BC ==
[~2018-01-03] VITALS: Ht 152.4 cm; Wt 90.7 kg
[~2018-01-03 09:48] MED LIST changes: +ASPI-586 PO; +ORPH100T PO; +SEMA1PEN SQ
[2018-01-03 10:05] VITALS: BP 130/86
[2018-01-03] MEDS ORDERED: NS IV 500 ML 500 ML IV PRN (10:13)
[2018-01-03] MEDS ORDERED: HURRICAINE EXT TUBE (BENZOCAINE) XX PRN (10:15)
[2018-01-03] MEDS ORDERED: fentaNYL INJECTION 100 MCG/2 ML AMP IVP ONE (10:15)
[2018-01-03] MEDS ORDERED: LIDOCAINE JELLY 2% 6 ML SYRINGE MM PRN (10:15)
[2018-01-03] MEDS ORDERED: MIDAZOLAM 2 MG/2 ML (VERSED) VIAL IVP ONE (10:15)
[2018-01-03] MEDS ORDERED: NS IV 500 ML 500 ML ONE (10:24)
--- NOTE | 2018-01-03 11:18 | Conscious Sedation/ASA ---
Conscious Sedation Pre-Proced Time 11:00 ASA Score 2 For ASA 3 and 4: Consider anesthesia and medical clearance. Also, for patients with a history of failed moderate sedation consider anesthesia. Airway Lungs Heart ASA score ASA 1: a normal healthy patient ASA 2: a patient with a mild systemic disease (mid diabetes, controlled hypertension, obesity ASA 3: a patient with a severe systemic disease that limits activity (angina , COPD, prior Myocardial infarction) ASA 4: a patient with an incapacitating disease that is a constant threat to life (CHF, renal failure) ASA 5: a moribund patient not expected to survive 24 hrs. (ruptured aneurysm) ASA 6: a declared brain patient whose organs are being harvested. For emergent operations, add the letter E after the classification Mallampati Classification Grade 3 Sedation Plan Analgesia, Amnesia, Plan communicated to team members, Discussed options with patient/fam, Discussed risks with patient/fam The patient is an appropriate candidate to undergo the planned procedure, sedation, and anesthesia. The patient immediately re-assessed prior to indication. TIMMY RANDOLPH MD Jan 03, 2018 11:18 am
--- NOTE | 2018-01-03 11:19 | Progress Note-Pre Operative ---
Pre-Operative Progress Note H&P Reviewed The H&P was reviewed, patient examined and no changes noted. Date Seen by Provider: Jan 03, 2018 Time Seen by Provider: 11:00 Date H&P Reviewed: Jan 03, 2018 Time H&P Reviewed: 11:00 Pre-Operative Diagnosis: TIMMY COTE MD Jan 03, 2018 11:18 am
[2018-01-03] MEDS ORDERED: MIDAZOLAM 2 MG/2 ML (VERSED) VIAL ONE ×4 (11:28→12:37)
[2018-01-03] MEDS ORDERED: fentaNYL INJECTION 100 MCG/2 ML AMP ONE (11:29)
[2018-01-03] MEDS ORDERED: LIDOCAINE JELLY 2% 6 ML SYRINGE ONE (11:29)
[2018-01-03] MEDS ORDERED: ACETAMINOPHEN 325 MG TABLET PO PRN (11:30)
[2018-01-03] MEDS ORDERED: HURRICAINE EXT TUBE (BENZOCAINE) ONE (11:30)
[2018-01-03] MEDS ORDERED: HYDROcodone/APAP 5 MG/325 MG (LORTAB) TAB PO PRN (11:30)
[2018-01-03] MEDS ORDERED: morphine INJ 10 MG/ML 1ML (SYR OR VIAL) IV PRN (11:30)
[2018-01-03] MEDS ORDERED: ONDANSETRON 4 MG/2 ML (SDV) Z0FRAN IV PRN (11:30)
[2018-01-03 13:00] VITALS: BP 137/63
[2018-01-03 13:30] VITALS: BP 106/68
[2018-01-03 13:50] VITALS: BP 106/68
--- NOTE | 2018-01-03 14:22 | Progress Note-Post Operative ---
Post-Operative Progess Note Surgeon (s)/Budder (s) Surgeon TIMMY RANDOLPH MD Budder: NONE Pre-Operative Diagnosis GERD Post-Operative Diagnosis reflux esophagitis(stage 2), small HH(2cm), moderate gastritis and duodenitis. Procedure & Operative Findings Date of Procedure 01/03/18 Procedure Performed/Findings EGD with bx. Anesthesia Type CS Estimated Blood Loss Estimated blood loss (mL): minimal Specimens/Packing Specimens Removed GE jxn, antrum TIMMY RANDOLPH MD Jan 03, 2018 2:21 pm
--- NOTE | 2018-01-03 16:03 | OPERATIVE REPORT ---
DATE OF SERVICE: 01/03/2018 ATTENDING BI MANAGER: JUSTICE Huber PREOPERATIVE DIAGNOSES: Epigastric pain with history of worsening gastroesophageal reflux disease. POSTOPERATIVE DIAGNOSES: Reflux esophagitis stage II, hiatal hernia approximately 2 cm in size, moderate gastritis and mild duodenitis. PROCEDURE: EGD with biopsy. SURGEON: Timmy Randolph MD ANESTHESIA: Conscious sedation. ESTIMATED BLOOD LOSS: Minimal. FINDINGS: Reflux esophagitis stage II, intrathoracic GE junction with hiatal hernia identified approximately 2 cm in size consistent with a sliding type 1, moderate gastritis, mild duodenitis. No ulcerations, polyps or any neoplasms. DISPOSITION: The patient tolerated the procedure well. INDICATIONS: The patient is a 47-year-old female with a number of medical comorbidities related to her weight. Her medical comorbidities include gastroesophageal reflux disease, fibromyalgia, anxiety, depression, hypertension and lower extremity edema. She has had issues with gastroesophageal reflux disease and peptic ulcer disease since age 19. She has been on different medications over the years and has tried omeprazole and is currently on omeprazole 40 mg daily, and was recently started on Zantac 150 mg b.i.d. as well. She reports pain in the epigastric region as well as right upper abdominal quadrant and does state that some foods make this worse including greasy foods. She was seen in the Emergency Department where a CT scan was performed, which did not show any intra-abdominal inflammatory changes. DESCRIPTION OF PROCEDURE: The patient was brought to the endoscopy suite, laid in the left lateral decubitus position. After adequate IV pain and sedating medications and conscious sedation anesthesia, the mouthpiece was applied. Endoscope was placed in the mouth, visualizing the pharynx and hypopharyngeal region. Vocal cords, epiglottis and vallecula identified and appeared to be normal. The endoscope was gently intubated at the esophageal opening and esophagus insufflated. The endoscope was then advanced to the first, second and third portion of esophagus to the level of GE junction, a reflux esophagitis stage II identified. The GE junction was also intrathoracic consistent with a type 1 sliding hiatal hernia. This was also verified upon. The endoscope was then advanced into the stomach and endoscope retroflexed, visualizing a small hiatal hernia approximately 2 cm in size. There was also moderate severity gastritis. No formal ulcerations, polyps or any neoplasms. A biopsy was taken of the stomach antrum with forceps with visualization of good hemostasis. The endoscope was then intubated into the pylorus and the first and second portion of duodenum. A mild to moderate duodenitis was also identified. There were no ulcers or any neoplasms. A biopsy was taken of the duodenum with visualization of good hemostasis. The endoscope was slowly withdrawn while taking a second look and suctioning residual air with no additional findings. The patient tolerated the procedure well. We will recommend the necessary lifestyle and diet accommodation including small and more frequent meals, avoidance of eating at night as well as head elevation while lying supine. She also needs to proceed with cessation of smoking. We will also await the biopsy results for possible H. pylori as well as some form of food allergy. However, we will proceed with replacing her omeprazole with pantoprazole 40 mg daily. Her symptoms may also be due to her gallbladder and she will undergo testing for this as well. Job ID: [id number] DocumentID: [id number] Dictated Date: 01/03/2018 12:57:11 Enterprise Business Architect Date: 01/03/2018 16:02:26 Dictated By: TIMMY RANDOLPH MD
== END 2018-01-03 13:50 | disposition home or self-care (01) ==
LOC: ENDO 09:48
PROVIDERS: ATTEND Surgery
DX: K21.0 Gastro-esophageal reflux disease with esophagitis (principal); J44.9 Chronic obstructive pulmonary disease, unspecified; K29.70 Gastritis, unspecified, without bleeding; K29.80 Duodenitis without bleeding; M79.7 Fibromyalgia; F41.9 Anxiety disorder, unspecified; F32.9 Major depressive disorder, single episode, unspecified; I10 Essential (primary) hypertension; R60.0 Localized edema; M32.9 Systemic lupus erythematosus, unspecified; K59.00 Constipation, unspecified; Z87.19 Personal history of other diseases of the digestive system; Z98.1 Arthrodesis status; F17.210 Nicotine dependence, cigarettes, uncomplicated

== ENCOUNTER 2018-01-09 13:04 | Outpatient (CLI) | payer BC ==
[~2018-01-09] VITALS: Ht 152.4 cm; Wt 90.7 kg
[2018-01-10] MEDS ORDERED: HYDR-3816 PO (09:49)
== END 2018-01-09 14:42 | disposition home or self-care (01) ==
LOC: PREOP 13:04
PROVIDERS: ATTEND Surgery
DX: Z01.818 Encounter for other preprocedural examination (principal)

== ENCOUNTER 2018-01-10 08:48 | Day surgery (SDC) | payer BC ==
[~2018-01-10] VITALS: Ht 152.4 cm; Wt 90.7 kg
[2018-01-10] MEDS ORDERED: BUP/EPI 0.5% 1:200,000 (SENSORCAINE) 30 ML VIAL ONE (09:11)
[2018-01-10] MEDS ORDERED: ceFAZolin 2 GM IV Premixed 50 ML IV ONE (09:30)
[2018-01-10] MEDS ORDERED: fentaNYL INJECTION 100 MCG/2 ML AMP ONE ×2 (09:40→12:41)
[2018-01-10] MEDS ORDERED: MIDAZOLAM 2 MG/2 ML (VERSED) VIAL ONE (09:40)
[2018-01-10 09:45] VITALS: BP 130/72
--- NOTE | 2018-01-10 09:47 | Progress Note-Pre Operative ---
Pre-Operative Progress Note H&P Reviewed The H&P was reviewed, patient examined and no changes noted. Date Seen by Provider: Jan 10, 2018 Time Seen by Provider: 09:40 Date H&P Reviewed: Jan 10, 2018 Time H&P Reviewed: 09:45 Pre-Operative Diagnosis: Symptomatic Biliary Dyskinesia ROSA HUTSON APRN Jan 10, 2018 9:47 am
[2018-01-10] MEDS ORDERED: HYDR-3816 PO (09:49)
--- NOTE | 2018-01-10 09:50 | Discharge Inst-Surgical ---
D/C Lap Instructions-KIDO New, Converted, or Re-Newed RX: RX on Chart Follow Up Appt in 2 weeks Activity as tolerated No driving for 24 hours No [address] while on pain medications Incentive Spirometry use every 2 hours while awake Regular Diet Symptoms to Report: Fever over 101 degree F, Nausea/Vomiting Infection Signs and Symptoms to report: Increased redness, Foul odor of wound, Increased drainage Bathing instructions: May shower Operative Area Clean/Dry; Keep incision clean/dry If any problems/questions: Contact your physician or go to Emergency Room ROSA HUTSON APRN Jan 10, 2018 9:50 am
[2018-01-10] MEDS ORDERED: ONDANSETRON 4 MG/2 ML (SDV) Z0FRAN ONE (09:54)
[2018-01-10] MEDS ORDERED: LIDOCAINE PF 2% 5 ML (XYLOCAINE) VIAL ONE (09:54)
[2018-01-10] MEDS ORDERED: proPOfol 200 MG/20 ML (DIPRIVAN) VIAL IV ONE (09:54)
[2018-01-10] MEDS ORDERED: SEVOFLURANE (ULTANE) 15 ML INHAL SOLN ONE ×6 (09:54→12:43)
[2018-01-10] MEDS ORDERED: ROCURONIUM 10 MG/ML 5 ML SYRINGE IV ONE (09:54)
[2018-01-10] MEDS ORDERED: HYDROcodone/APAP 5 MG/325 MG (LORTAB) TAB PO ONE (10:00)
[2018-01-10] MEDS ORDERED: morphine INJ 10 MG/ML 1ML (SYR OR VIAL) IVP PRN (10:00)
[2018-01-10] MEDS ORDERED: ONDANSETRON 4 MG/2 ML (SDV) Z0FRAN IVP PRN (10:00)
[2018-01-10] MEDS ORDERED: ACETAMINOPHEN 325 MG TABLET PO PRN (10:00)
[2018-01-10] MEDS ORDERED: FAMOTIDINE 20MG/2ML IV (PEPCID) IVP ONE (10:00)
[2018-01-10] MEDS: LACTATED RINGERS 1,000 ML IV PRN ×2 (10:33→14:11)
[2018-01-10] MEDS ORDERED: PROMETHAZINE INJ 25 MG/ML (PHENERGAN) AMP IVP ONE (12:30)
[2018-01-10] MEDS ORDERED: MEPERIDINE (DEMEROL) INJ 50 MG/ML IVP ONE (12:30)
[2018-01-10] MEDS ORDERED: fentaNYL INJECTION 100 MCG/2 ML AMP IVP ONE (12:30)
[2018-01-10] MEDS ORDERED: NEOSTIGMINE 1 MG/ML 5 ML SYRINGE ONE (12:33)
[2018-01-10] MEDS ORDERED: SUGAMMADEX 500 MG/5 ML VIAL (BRIDION) IV ONE (12:33)
[2018-01-10] MEDS ORDERED: GLYCOPYRROLATE 0.2 MG/ML (ROBINUL) 2 ML VIAL ONE (12:33)
--- NOTE | 2018-01-10 12:37 | Progress Note-Post Operative ---
Post-Operative Progess Note Surgeon (s)/Craft Artist (s) Surgeon TIMMY RANDOLPH MD Craft Artist: rachel beltran WELLNESS PROGRAM MANAGER Pre-Operative Diagnosis Symptomatic Biliary Dyskinesia Post-Operative Diagnosis same Procedure & Operative Findings Date of Procedure 01/10/18 Procedure Performed/Findings laparoscopic cholecystectomy Anesthesia Type GET Estimated Blood Loss Estimated blood loss (mL): minimal Specimens/Packing Specimens Removed gallbladder TIMMY RANDOLPH MD Jan 10, 2018 12:37 pm
[2018-01-10] MEDS ORDERED: KETOROLAC 30 MG/ML VIAL ONE (12:43)
[2018-01-10] MEDS ORDERED: KETOROLAC 30 MG/ML VIAL IVP ONE (13:00)
[2018-01-10] MEDS: ONDANSETRON 4 MG/2 ML (SDV) Z0FRAN IVP PRN ×3 (13:30→13:49)
[2018-01-10] MEDS ORDERED: HYDROmorphone 2 MG/ML VIAL (DILAUDID) ONE (13:54)
[2018-01-10] MEDS ORDERED: HYDROmorphone 2 MG/ML VIAL (DILAUDID) IV ONE (14:00)
[2018-01-10] MEDS ORDERED: ONDANSETRON 4 MG/2 ML (SDV) Z0FRAN IVP ONE (14:00)
[2018-01-10 14:35] VITALS: BP 156/94
[2018-01-10 15:05] VITALS: BP 161/86
[2018-01-10 15:35] VITALS: BP 151/85
[2018-01-10] MEDS ORDERED: HYDROcodone/APAP 5 MG/325 MG (LORTAB) TAB ONE (16:08)
--- NOTE | 2018-01-10 22:14 | OPERATIVE REPORT ---
DATE OF SERVICE: 01/10/2018 ATTENDING PRIMARY CARE PHYSICIAN: JUSTICE Heredia PREOPERATIVE DIAGNOSIS: Symptomatic biliary dyskinesia. POSTOPERATIVE DIAGNOSIS: Symptomatic biliary dyskinesia. PROCEDURE: Laparoscopic cholecystectomy. SURGEON: Andrea Grace MD MULTIMEDIA DESIGNER: Sam Guillen APRN ANESTHESIA: General endotracheal. ESTIMATED BLOOD LOSS: Minimal. FINDINGS: Hepatomegaly, distended gallbladder, thick mesentery. DISPOSITION: The patient tolerated this procedure well. INDICATIONS: The patient is a 47-year-old female known to us. She has had issues with gastroesophageal reflux disease, fibromyalgia, anxiety, depression, hypertension as well as lower extremity edema. She reports that she has had a multitude of different gastrointestinal issues in the past; however, these have worsened. She reports epigastric pain, which has worsened. She states that she has had gastroesophageal reflux disease and has been taking omeprazole and other acid reducers since age 19. She states that her medications kept her symptoms under control; however, she has had reoccurrence of symptoms and has added Zantac 150 mg b.i.d. An EGD was performed on 01/03/2018, which showed a reflux esophagitis stage II, small hiatal hernia 2 cm in size as well as a mild gastritis and duodenitis. Biopsies were negative for H. pylori as well as negative for Overton's esophagus. She underwent a HIDA scan, which showed a normal ejection fraction of 54%; however, she did have severe reproduction of symptoms, which included right upper abdominal quadrant pain with radiation towards the back and associated nausea and vomiting consistent with a biliary dyskinesia. DESCRIPTION OF PROCEDURE: The patient was brought to the operating room, laid supine on the table. After adequate IV pain and sedative medications and general endotracheal intubation, the abdomen was prepped and draped in standard surgical fashion. A 0.5% Marcaine with epinephrine was then used to anesthetize the overlying skin to the left upper abdominal quadrant and a small transverse incision made using a 15 blade. An 0 silk suture was applied to the medial aspect of the incision for retraction and a Veress needle inserted with a low opening pressure of 0 mmHg and the abdomen was then insufflated to 15 mmHg pressure. The Veress needle removed and a 5 mm Xcel trocar placed followed by a 5 mm 45 degree angle laparoscope visualizing the peritoneal cavity. A 4-quadrant abdominal exploration was performed. There was a moderate hepatomegaly as well as thickened mesentery. There was a dilated gallbladder, no inflammation. Under direct visualization, we then proceed to place a supraumbilical 10 mm port after the skin and peritoneal lining were anesthetized using 0.5% Marcaine with epinephrine and a transverse skin incision made using a 15 blade. In a similar manner, a right upper abdominal quadrant 5 mm port was placed. The patient was then placed in reverse Trendelenburg position as well as plane right side up, left side down. The fundus of the gallbladder was then retracted anteriorly and superiorly. The hepatoduodenal ligament was then opened using hook instrument with blunt dissection as well as electrocautery. The entire critical view of safety was identified including the triangle of Calot, the cystic duct and artery as the only two structures going into the gallbladder as well as the cystic plate behind the proximal gallbladder. A timeout was then taken and the cystic duct and artery were then clipped proximally, distally and cut with EndoShears. The gallbladder was then dissected off the liver bed using electrocautery and hook instrument with visualization of good hemostasis as well as no leaking ducts of Luschka. The gallbladder was removed through the 10 mm port site using an EndoCatch bag. The 10 mm fascia and peritoneum were then closed under direct visualization using a Delmar-Martha device and an 0 Vicryl suture. The abdomen was desufflated and remaining ports removed. All skin incisions were closed using 4-0 Monocryl running subcuticular sutures. Wounds were then cleaned and covered with Dermabond. The patient tolerated the procedure well. We will start IV and oral pain medication as well as a clear liquid diet. Once she is tolerating clears and has good pain control with oral pain medication and is ambulating, we will discharge her home. We will also instruct her to refrain from any heavy lifting or exertion for the next two weeks and have her follow up in the office. Job ID: [id number] DocumentID: [id number] Dictated Date: 01/10/2018 12:46:15 [employer] Date: 01/10/2018 22:13:22 Dictated By: MD JANN NUR
[2018-01-11] MEDS ORDERED: METR500T PO (20:30)
[2018-01-11] MEDS ORDERED: OXYC1TAB87 PO (20:30)
[2018-01-11] MEDS ORDERED: CIPR500T4 PO (20:30)
[2018-01-11] MEDS ORDERED: ONDA8TAB9 SL (21:21)
== END 2018-01-10 16:25 | disposition home or self-care (01) ==
LOC: SDC 08:48
PROVIDERS: ATTEND Surgery
DX: K81.1 Chronic cholecystitis (principal); K82.8 Other specified diseases of gallbladder; Z11.2 Encounter for screening for other bacterial diseases; K21.9 Gastro-esophageal reflux disease without esophagitis; M79.7 Fibromyalgia; F41.9 Anxiety disorder, unspecified; F32.9 Major depressive disorder, single episode, unspecified; I10 Essential (primary) hypertension; R60.0 Localized edema; M32.9 Systemic lupus erythematosus, unspecified; K59.09 Other constipation; F17.210 Nicotine dependence, cigarettes, uncomplicated; E11.9 Type 2 diabetes mellitus without complications; I48.91 Unspecified atrial fibrillation; E66.9 Obesity, unspecified; Z79.899 Other long term (current) drug therapy; Z79.82 Long term (current) use of aspirin; Z79.84 Long term (current) use of oral hypoglycemic drugs; Z68.39 Body mass index [BMI] 39.0-39.9, adult; Z87.19 Personal history of other diseases of the digestive system
CPT/HCPCS: 82962; 87081; 88304

== ENCOUNTER 2018-01-11 17:27 | Emergency (ER) | payer BC ==
[~2018-01-11] VITALS: Ht 152.4 cm; Wt 88.0 kg
[~2018-01-11 17:27] MED LIST changes: +HYDR-3816 PO
[2018-01-11 17:58] LABS: BASOPHILS % (AUTO) 0 % (0-10); EOSINOPHILS # (AUTO) 0.3 10^3/uL (0.0-0.3); EOSINOPHILS % (AUTO) 2 % (0-10); HEMATOCRIT 41 % (35-52); HEMOGLOBIN 13.7 G/DL (11.5-16.0); LYMPHOCYTES # (AUTO) 1.5 X 10^3 (1.0-4.0); LYMPHOCYTES % (AUTO) 9 % (12-44); MEAN CORPUSCULAR HEMOGLOBIN 27 PG (25-34); MEAN CORPUSCULAR HGB CONC 33 G/DL (32-36); MEAN CORPUSCULAR VOLUME 81 FL (80-99); MEAN PLATELET VOLUME 10.2 FL (7.4-10.4); MONOCYTES # (AUTO) 1.5 X 10^3 (0.0-1.0); MONOCYTES % (AUTO) 9 % (0-12); NEUTROPHILS # (AUTO) 13.9 X 10^3 (1.8-7.8); NEUTROPHILS % (AUTO) 81 % (42-75); PLATELET COUNT 328 10^3/uL (130-400); RED BLOOD COUNT 5.06 10^6/uL (4.35-5.85); RED CELL DISTRIBUTION WIDTH 16.7 % (10.0-14.5); WHITE BLOOD COUNT 17.2 10^3/uL (4.3-11.0)
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
[2018-01-11] MEDS ORDERED: RECEIVED CONTRAST (Hold Metformin) IV SCH (18:15)
[2018-01-11 18:18] LABS: ALANINE AMINOTRANSFERASE 61 U/L (0-55); ALBUMIN 3.9 GM/DL (3.2-4.5); ALKALINE PHOSPHATASE 53 U/L (40-136); BILIRUBIN,TOTAL 0.8 MG/DL (0.1-1.0); BUN/CREATININE RATIO 7; CALCIUM 9.1 MG/DL (8.5-10.1); CARBON DIOXIDE 22 MMOL/L (21-32); CHLORIDE 104 MMOL/L (98-107); CREATININE SERUM 0.69 MG/DL (0.60-1.30); GFR ESTIMATED > 60; GLUCOSE 117 MG/DL (70-105); LIPASE 8 U/L (8-78); POTASSIUM 3.9 MMOL/L (3.6-5.0); SODIUM 137 MMOL/L (135-145); TOTAL PROTEIN 6.9 GM/DL (6.4-8.2)
[2018-01-11 18:19] LABS: ANISOCYTOSIS SLIGHT; BAND NEUTROPHILS 0 %; BASOPHILS % (MANUAL) 2 %; EOSINOPHILS % (MANUAL) 2 %; LYMPHOCYTES % (MANUAL) 14 %; MONOCYTES % (MANUAL) 6 %; NEUTROPHILS % (MANUAL) 76 %
[2018-01-11 18:24] LABS: BILIRUBIN,URINE NEGATIVE (NEGATIVE); CLARITY,URINE CLEAR; COLOR,URINE YELLOW; GLUCOSE, URINE (UA) NEGATIVE (NEGATIVE); KETONES,URINE NEGATIVE (NEGATIVE); LEUKOCYTE ESTERASE ,URINE NEGATIVE (NEGATIVE); NITRITE,URINE NEGATIVE (NEGATIVE); PH,URINE 6.5 (5-9); PROTEIN,URINE NEGATIVE (NEGATIVE); UROBILINOGEN,URINE 1 MG/DL (NORMAL)
[2018-01-11] MEDS: NS 250 ML (IVPB) BAG IV ONE (18:30)
[2018-01-11] MEDS: IOHEXOL 350 MG/ML 100 ML (OMNIPAQUE 350) VIAL IV ONE (18:30)
[2018-01-11] MEDS: CATHETER FLUSH 10 ML SYR IV PRN (18:30)
[2018-01-11 18:34] LABS: WBC,URINE RARE /HPF
--- NOTE | 2018-01-11 18:40 | Diagnostic Imaging Report ---
PROCEDURE: CT abdomen and pelvis with contrast. TECHNIQUE: Multiple contiguous axial images were obtained through the abdomen and pelvis after administration of intravenous contrast. INDICATION: Right-sided abdominal pain. Cholecystectomy yesterday. FINDINGS: There is mild atelectasis in the right lung base. There is a small amount of perihepatic fluid, laterally. There is no fluid in the biliary fossa. There are surgical clips noted in the biliary fossa. The intrahepatic radicles and common bile ducts are not dilated. The liver shows fatty change. The pancreas appears normal. The pancreatic duct is not distended. The spleen is normal. Adrenal glands are normal. The kidneys appear normal. There is normal enhancement of the abdominal organs and vessels following IV contrast. The stomach is not distended. Small bowel does show some fluid-filled loops though no significant distention demonstrated. The colon shows moderate amount of stool and fluid in the ascending colon and transverse colon which is mildly distended. The distal colon from the splenic flexure to the rectum is empty. No evidence of diverticulitis. There is a trace of fluid in the pelvis in the rectovesical pouch. The uterus is absent. No pelvic masses. The appendix is visualized and normal. No intra-abdominal adenopathy. No free air. IMPRESSION: 1. There is some atelectasis in the right lung base. 2. There is a very small amount of fluid along the lateral perihepatic space and within the pelvis. There is no evidence of fluid to suggest bile leak in the biliary fossa. 3. Bile ducts and pancreatic duct are not distended. 4. Bowel gas pattern is normal. Appendix is normal. Dictated by: Dictated on workstation # [id number]
--- NOTE | 2018-01-11 18:48 | Diagnostic Imaging Report ---
INDICATION: Severe abdominal pain, postop gallbladder surgery. FINDINGS: Frontal and lateral views of the chest demonstrate minimal linear atelectasis in the left lung. Heart and vascularity are normal. There are no pleural effusions. IMPRESSION: There is minimal atelectasis. Dictated by: Dictated on workstation # [id number]
[2018-01-11] MEDS: morphine INJ 10 MG/ML 1ML (SYR OR VIAL) IVP STA ×2 (19:05→19:41)
[2018-01-11] MEDS: KETOROLAC 30 MG/ML VIAL IVP STA (19:42)
[2018-01-11] MEDS: METHYLNALTREXONE 12 MG/0.6 ML (RELISTOR) VIAL SQ ONE (20:00)
[2018-01-11] MEDS: NS IV 1000 ML 1,000 ML IV ONE (20:01)
[2018-01-11] MEDS ORDERED: OXYC1TAB87 PO (20:30)
[2018-01-11] MEDS ORDERED: CIPR500T4 PO (20:30)
[2018-01-11] MEDS ORDERED: METR500T PO (20:30)
[2018-01-11] MEDS ORDERED: ONDA8TAB9 SL (21:21)
[2018-01-11] MEDS: oxyCODONE/APAP 5/325MG (PERCOCET 5) TABLET PO STA (21:47)
[2018-01-11 21:51] VITALS: BP 155/81
== END 2018-01-11 21:57 | disposition home or self-care (01) ==
LOC: EDUNIT# 17:27 → ER 17:28
DX: G89.18 Other acute postprocedural pain (principal); K59.00 Constipation, unspecified; I48.91 Unspecified atrial fibrillation; I10 Essential (primary) hypertension; K21.9 Gastro-esophageal reflux disease without esophagitis; E11.9 Type 2 diabetes mellitus without complications; F17.210 Nicotine dependence, cigarettes, uncomplicated; Z79.82 Long term (current) use of aspirin; Z79.84 Long term (current) use of oral hypoglycemic drugs; Z85.828 Personal history of other malignant neoplasm of skin; Z90.49 Acquired absence of other specified parts of digestive tract; Z98.890 Other specified postprocedural states; Z87.442 Personal history of urinary calculi; Z90.710 Acquired absence of both cervix and uterus; Z98.51 Tubal ligation status
CPT/HCPCS: 36415; 71046; 74177; 80053; 81000; 82962; 83690; 85007; 85027; 94664; 96361; 96372; 96374; 96375; 96376

== ENCOUNTER 2019-02-04 08:55 | Outpatient (RCR) | payer BC ==
[~2019-02-04 08:55] MED LIST changes: +CIPR500T4 PO; -FLUO20CA25 PO; +FLUO20CA45 PO; +METR500T PO; +OMEP40CA27 PO; -OMEP40CA36 PO; +ONDA8TAB9 SL; +OXYC1TAB87 PO
== END 2019-05-05 | disposition home or self-care (01) ==
LOC: CARD 08:55
PROVIDERS: ATTEND Internal Medicine Cardiovascular Disease
DX: I48.0 Paroxysmal atrial fibrillation (principal)

== ENCOUNTER → 2019-03-22 | Outpatient (CLI) | payer BC ==
[~2019-03-22] MED LIST changes: +FLUO20CA25 PO; -FLUO20CA45 PO; -OMEP40CA27 PO; +OMEP40CA36 PO
== END ==
LOC: CARD 11:18
PROVIDERS: ATTEND Physician Assistant
DX: I11.9 Hypertensive heart disease without heart failure (principal); K21.0 Gastro-esophageal reflux disease with esophagitis; I48.0 Paroxysmal atrial fibrillation; Z72.0 Tobacco use
CPT/HCPCS: 93306

== ENCOUNTER → 2019-04-10 | Outpatient (CLI) | payer BC ==
[~2019-04-10] MED LIST changes: -FLUO20CA25 PO; +FLUO20CA45 PO; +OMEP40CA27 PO; -OMEP40CA36 PO
--- NOTE | 2019-04-10 12:56 | Diagnostic Imaging Report ---
INDICATION: Lump in the left groin. TECHNIQUE: Sonographic interrogation of the area of lump in the left groin was performed. FINDINGS: No sonographic abnormality is seen. No solid or cystic mass is detected. IMPRESSION: No sonographic abnormality is detected. Dictated by: Dictated on workstation # [id number]
== END ==
LOC: RAD 11:54
PROVIDERS: ATTEND Nurse Practitioner Family
DX: R22.42 Localized swelling, mass and lump, left lower limb (principal)
CPT/HCPCS: 76881

== ENCOUNTER 2019-05-07 06:33 | Outpatient (CLI) | payer BC ==
[~2019-05-07] VITALS: Ht 152 cm; Wt 86.0 kg
[~2019-05-07 06:33] MED LIST changes: -FLUO20CA45 PO; +FLUO20CA46 PO
[2019-05-07] MEDS ORDERED: VILA10TA PO (09:28)
[2019-05-07] MEDS ORDERED: ONDA4TAB11 PO (09:28)
[2019-05-07] MEDS ORDERED: APIX5TAB PO (09:28)
[2019-05-07] MEDS ORDERED: METO-333 PO (09:28)
[2019-05-07] MEDS ORDERED: OMEP40CA27 PO (09:28)
[2019-05-07] MEDS ORDERED: PLEC3TAB PO (09:28)
[2019-05-09] MEDS ORDERED: OXYC1TAB87 PO (08:58)
== END 2019-05-07 09:44 | disposition home or self-care (01) ==
LOC: PREOP 06:33
PROVIDERS: ATTEND Surgery
DX: Z01.818 Encounter for other preprocedural examination (principal)

== ENCOUNTER 2019-05-22 12:35 | Outpatient (RCR) | payer BC, MEDICARE ==
[2019-05-15 13:00] VITALS: BP 125/79
[2019-05-15] MEDS: FERRIC CARBOXYMALTOSE INJ 750 MG in NS (IVPB) 250 ML IV SCH (13:30)
[2019-05-22 12:35] VITALS: BP 120/6
[~2019-05-22 12:35] MED LIST changes: +APIX5TAB PO; +HYDR-34 PO; -HYDR-3816 PO; +METO-333 PO; +PLEC3TAB PO; +VILA10TA PO
[2019-05-22] MEDS: FERRIC CARBOXYMALTOSE INJ 750 MG in NS (IVPB) 250 ML IV SCH (13:12)
== END 2019-05-22 13:40 | disposition home or self-care (01) ==
LOC: SDC 12:35
PROVIDERS: ATTEND Nurse Practitioner Family
DX: D50.9 Iron deficiency anemia, unspecified (principal)
CPT/HCPCS: 96365

== ENCOUNTER → 2019-12-13 | Outpatient (CLI) | payer BC ==
[~2019-12-13] MED LIST changes: +HOLD METFORMIN - RECEIVED CONTRAST 20 ML VIAL IV SCH; +IOHEXOL 350 MG/ML 100 ML (OMNIPAQUE 350) VIAL IV ONE; +NS 100 ML (IVPB) BAG IV ONE
--- NOTE | 2019-12-13 11:26 | Diagnostic Imaging Report ---
PROCEDURE: CT abdomen and pelvis with contrast. TECHNIQUE: Multiple contiguous axial images were obtained through the abdomen and pelvis after administration of intravenous contrast. Auto Exposure Controls were utilized during the CT exam to meet ALARA standards for radiation dose reduction. All CT scans use one or more of the following dose optimizing techniques: automated exposure control, MA and/or KvP adjustment based on patient size and exam type or iterative reconstruction. INDICATION: Flank pain, abdominal pain. COMPARISON: 01/11/2018 FINDINGS: The visualized lung bases are clear. Cholecystectomy. The liver, spleen, adrenal glands, and pancreas are unremarkable. The bilateral kidneys and ureters are unremarkable. No aneurysmal dilatation of the abdominal aorta. The appendix is unremarkable. The urinary bladder is unremarkable. Uterus is not visualized, likely surgically absent. No abnormal adnexal mass lesion. No bowel obstruction or pneumatosis. Mild stenosis involving the proximal left common iliac artery. No significant adenopathy, free air, or free fluid within the abdomen or pelvis. Scattered osseous degenerative changes without acute osseous abnormality. IMPRESSION: No acute abnormality. Cholecystectomy. Dictated by: Dictated on workstation # [id number]
== END ==
LOC: RAD 10:45
PROVIDERS: ATTEND Nurse Practitioner Family
DX: R10.84 Generalized abdominal pain (principal); Z87.442 Personal history of urinary calculi
CPT/HCPCS: 74177

== ENCOUNTER 2020-02-21 08:33 | Outpatient (RCR) | payer BC ==
[~2020-02-21 08:33] MED LIST changes: -CIPR500T4 PO; +CIPR500T5 PO; +CLN.1T PO; -CLON0.1T PO; -HOLD METFORMIN - RECEIVED CONTRAST 20 ML VIAL IV SCH; -IOHEXOL 350 MG/ML 100 ML (OMNIPAQUE 350) VIAL IV ONE; -NS 100 ML (IVPB) BAG IV ONE; -PLEC3TAB PO; +PLEC3TAB2 PO
[2020-02-21 09:28] LABS: ALANINE AMINOTRANSFERASE 29 U/L (0-55); ALKALINE PHOSPHATASE 46 U/L (40-136); BILIRUBIN,TOTAL 0.4 MG/DL (0.1-1.0); BUN/CREATININE RATIO 18; CALCIUM 9.7 MG/DL (8.5-10.1); CARBON DIOXIDE 24 MMOL/L (21-32); CHLORIDE 103 MMOL/L (98-107); CREATININE SERUM 0.72 MG/DL (0.60-1.30); GFR ESTIMATED > 60; GLUCOSE 118 MG/DL (70-105); MAGNESIUM 2.1 MG/DL (1.6-2.4); POTASSIUM 3.8 MMOL/L (3.6-5.0); SODIUM 139 MMOL/L (135-145); TOTAL PROTEIN 6.8 GM/DL (6.4-8.2)
== END 2020-05-21 | disposition home or self-care (01) ==
LOC: LAB 08:33 → EDSTATUS 08:33
PROVIDERS: ATTEND Nurse Practitioner Family
DX: E27.49 Other adrenocortical insufficiency (principal)
CPT/HCPCS: 36415; 80053; 82533; 83735

== ENCOUNTER → 2020-06-30 | Outpatient (CLI) | payer BC ==
[~2020-06-30] MED LIST changes: +BARIUM SUSPENSION 2.1% (VANILLA SILQ) 450 ML PO ONE; +CATHETER FLUSH 10 ML SYR IV PRN; +HOLD METFORMIN - RECEIVED CONTRAST 20 ML VIAL IV SCH; +IOHEXOL 350 MG/ML 100 ML (OMNIPAQUE 350) VIAL IV ONE; +NS 100 ML (IVPB) BAG IV ONE
--- NOTE | 2020-06-30 09:12 | Diagnostic Imaging Report ---
PROCEDURE: CT abdomen and pelvis with contrast. TECHNIQUE: Multiple contiguous axial images were obtained through the abdomen and pelvis after administration of intravenous contrast. Auto Exposure Controls were utilized during the CT exam to meet ALARA standards for radiation dose reduction. All CT scans use one or more of the following dose optimizing techniques: automated exposure control, MA and/or KvP adjustment based on patient size and exam type or iterative reconstruction. INDICATION: Bilateral flank pain, adrenal insufficiency. Compared with study 12/13/2019. FINDINGS: The adrenal glands are symmetric, normal and stable. The liver unremarkable. The gallbladder surgically absent. There is no bile duct dilatation. The pancreas is normal. The unobstructed kidneys were normal. The spleen normal in size and nonfocal. There is no ascites, abscess, hematoma or acute fluid collection. There is no diverticulitis or appendicitis. No inflammatory process or acute abnormalities. No aneurysm, adenopathy or mass. No ascites. IMPRESSION: Stable normal CT abdomen and pelvis postcholecystectomy. Dictated by: Dictated on workstation # [id number]
== END ==
LOC: RAD 08:45
PROVIDERS: ATTEND Nurse Practitioner Family
DX: E27.40 Unspecified adrenocortical insufficiency (principal); Z87.442 Personal history of urinary calculi; Z86.012 Personal history of benign carcinoid tumor
CPT/HCPCS: 74177

== ENCOUNTER 2020-07-06 12:42 | Outpatient (CLI) | payer BC ==
[~2020-07-06 12:42] MED LIST changes: -BARIUM SUSPENSION 2.1% (VANILLA SILQ) 450 ML PO ONE; -CATHETER FLUSH 10 ML SYR IV PRN; -HOLD METFORMIN - RECEIVED CONTRAST 20 ML VIAL IV SCH; -IOHEXOL 350 MG/ML 100 ML (OMNIPAQUE 350) VIAL IV ONE; -NS 100 ML (IVPB) BAG IV ONE
== END 2020-07-06 13:00 | disposition home or self-care (01) ==
LOC: SLEEP 12:42
PROVIDERS: ATTEND Nurse Practitioner Family
DX: G47.10 Hypersomnia, unspecified (principal); G47.61 Periodic limb movement disorder; I10 Essential (primary) hypertension; I49.9 Cardiac arrhythmia, unspecified; E27.40 Unspecified adrenocortical insufficiency
CPT/HCPCS: G0399

== ENCOUNTER → 2020-12-25 | Outpatient (CLI) | payer BC ==
[~2020-12-25] MED LIST changes: -OMEP40CA27 PO; +OMEP40CA6 PO
--- NOTE | 2020-12-25 18:19 | Diagnostic Imaging Report ---
CLINICAL INDICATION: Patient with supraclavicular edema. EXAM: Focused ultrasound of the lower neck region of concern near midline. COMPARISON: None. FINDINGS AND IMPRESSION: There is no neck soft tissue mass, fluid collection, or lymphadenopathy seen in the area of concern. Limited visualization of the thyroid gland shows no gross abnormality. If there is concern for thyroid abnormality, dedicated thyroid ultrasound would better evaluate. Dictated by: Dictated on workstation # [id number]
== END ==
LOC: RAD 11:06
PROVIDERS: ATTEND Nurse Practitioner Family
DX: R60.0 Localized edema (principal)
CPT/HCPCS: 76536

== ENCOUNTER → 2021-01-21 | Outpatient (CLI) | payer BC ==
[~2021-01-21] MED LIST changes: +HOLD METFORMIN - RECEIVED CONTRAST 20 ML VIAL IV SCH; +IOHEXOL 350 MG/ML 100 ML (OMNIPAQUE 350) VIAL IV ONE; +NS 100 ML (IVPB) BAG IV ONE
--- NOTE | 2021-01-21 12:19 | Diagnostic Imaging Report ---
TECHNIQUE: CT of the orbits was performed with and without contrast. Sagittal and coronal reformats were performed and reviewed. All CT scans use one or more of the following dose optimizing techniques: Automated exposure control, MA and/or KvP adjustment based on patient size and exam type or iterative reconstruction. REASON FOR EXAM: Right eye bulging. Decreased vision. Pressure in both eyes. COMPARISON: 12/25/2020. 08/05/2017. FINDINGS: No evidence of mass or fluid collection in the globes and orbits. The globes are intact bilaterally. No postseptal inflammatory changes are seen. No evidence of exophthalmos. The extraocular muscles are symmetric and unremarkable. No abnormal enhancement is appreciated in the bilateral optic nerves. No excessive fluid is seen within the optic nerve sheaths. The cavernous sinuses have a normal appearance. No abnormality is seen within the ophthalmic veins. No pre-septal inflammatory changes are seen. No radiopaque foreign bodies are seen. No acute facial fractures are identified. The included intracranial contents demonstrate no acute abnormalities. IMPRESSION: 1. Unremarkable CT appearance of the globes and orbits. No evidence of mass or postseptal inflammatory changes. No abnormal enhancement is seen. Consider MRI of the orbits with and without contrast to further evaluate if symptoms persist. Dictated by: Dictated on workstation # [id number]
== END ==
LOC: RAD 10:50
PROVIDERS: ATTEND Nurse Practitioner Family
DX: H54.3 Unqualified visual loss, both eyes (principal); H05.20 Unspecified exophthalmos
CPT/HCPCS: 70482

== ENCOUNTER → 2021-02-09 | Outpatient (CLI) | payer BC ==
[~2021-02-09] MED LIST changes: -FLUO20CA46 PO; +FLUO20CA48 PO; -HOLD METFORMIN - RECEIVED CONTRAST 20 ML VIAL IV SCH; -IOHEXOL 350 MG/ML 100 ML (OMNIPAQUE 350) VIAL IV ONE; -NS 100 ML (IVPB) BAG IV ONE
--- NOTE | 2021-02-09 13:17 | Diagnostic Imaging Report ---
INDICATION: Postmenopausal screening. COMPARISON: 11/16/2017. FINDINGS: AP Spine L1-L4: [BMD (g/cm2): 1.243] [T-Score: 0.4] [Z-Score: -0.1] [BMD Previous: 1.073] [BMD % Change: 15.8] LT Hip Neck: [BMD (g/cm2): 0.897] [T-Score: -1.0] [Z-Score: -0.8] LT Hip Total: [BMD (g/cm2):1.028] [T-Score:0.2] [Z-Score: 0.0] [BMD Previous: 1.015] [BMD % Change: 1.3] RT Hip Neck: [BMD (g/cm2):0.890] [T-Score:-1.1] [Z-Score:-0.8] RT Hip Total: [BMD (g/cm2):0.973] [T-score:-0.3] [Z-Score:-0.4] [BMD Previous:0.963] [BMD % Change:1.0] *Indicates significant change from prior examination based on 95% confidence level. World Health Organization criteria for BMD interpretation classify patients as Normal (T-score at or above -1.0), Osteopenic (T-score between -1.0 and -2.5) or Osteoporotic (T-score at or below -2.5). LIMITATIONS AND MODIFICATION: None. FRACTURE RISK (FRAX SCORE): The ten year probability of (%): Major Osteoporotic Fracture: [NA] Hip Fracture: [NA] IMPRESSION: 1. Normal bone mineral density. 2. No significant change in bone mineral density since prior examination. 3. See below National Osteoporosis Foundation guidelines on when to potentially initiate pharmacologic therapy. Based on the National Osteoporosis Foundation Guidelines, pharmacologic treatment should be initiated in any of the following, unless clinical conditions suggest otherwise: * Any patient with prior fragility fracture of the hip or vertebrae. A spine fracture indicates 5X risk for subsequent spine fracture and 2X risk for subsequent hip fracture. * Osteoporosis (T-score <-2.5). * Postmenopausal women and men age 50 and older with low bone mass/osteopenia (T-score between -1.0 and -2.5) by DXA and 10-year major osteoporotic fracture greater than 20% or a 10-year probability of hip fracture greater than 3%. These fracture risks are supplied above in the FRAX score, if applicable. * Clinician judgement and/or patient preferences may indicate treatment for people with 10-year fracture probabilities above or below these levels. Dictated by: Dictated on workstation # [id number]
--- NOTE | 2021-02-10 12:37 | Diagnostic Imaging Report ---
Digital mammogram. Indication: Bilateral screening There are no prior studies available for comparison. At this time there are no current complaints. The breasts are predominantly fatty. On the craniocaudad view of the left breast in the lateral aspect of the breast approximately 4 cm from nipple there is a small 3 mm nodular asymmetry. This finding seems to be at the level of the nipple on the MLO tomographic views. This does have a benign appearance. However as there are no prior studies available for comparison I would recommend ultrasound be performed to better characterize this finding. There is no primary or secondary sign of malignancy noted otherwise. Impression: Ultrasound would be recommended to better characterize the small benign-appearing nodular density in the medial retroareolar region of the left breast. ACR BI-RADS Category 0: Incomplete. (Needs additional imaging evaluation). Result letter will be mailed to the patient. Note: At least 10% of breast cancer is not imaged by mammography. Dictated by: Dictated on workstation # [id number]
== END ==
LOC: RAD 11:00
PROVIDERS: ATTEND Nurse Practitioner Family
DX: Z12.31 Encounter for screening mammogram for malignant neoplasm of breast (principal); Z78.0 Asymptomatic menopausal state
CPT/HCPCS: 77063; 77067; 77080

== ENCOUNTER → 2021-03-18 | Outpatient (CLI) | payer BC ==
--- NOTE | 2021-03-18 14:57 | Diagnostic Imaging Report ---
Ultrasound left breast, limited. Indication: Abnormal mammogram The screening mammogram performed on 02/10/2021 noted a small 3 mm nodular asymmetry in the lateral retroareolar region of the left breast. The ultrasound examination of this area shows that there is a fairly well-circumscribed avascular hypoechoic lesion measuring 4 x 4 mm in the lateral retroareolar region of the left breast. I suspect this corresponds to the finding of the mammogram. This is most likely a benign process such as a small cyst or perhaps a complicated cyst, as there are no prior studies available for comparison. However it may prove worthwhile to have a short-term (6 month) followup mammogram and ultrasound exam for further study. Impression: The small nodular asymmetry seen on mammogram is felt to represent a benign process. Recommendations as above. ACR category 3 ACR BI-RADS Category 3: Probably benign findings. Result letter will be mailed to the patient. Note: At least 10% of breast cancer is not imaged by mammography. Dictated by: Dictated on workstation # [id number]
== END ==
LOC: RAD 13:15
PROVIDERS: ATTEND Nurse Practitioner Family
DX: N63.20 Unspecified lump in the left breast, unspecified quadrant (principal)
CPT/HCPCS: 76642

== ENCOUNTER → 2021-05-17 | Outpatient (CLI) | payer BC ==
[~2021-05-17] VITALS: Ht 162 cm; Wt 90.0 kg
[~2021-05-17] MED LIST changes: +REGADENOSON 0.4 MG/5 ML SYR (LEXISCAN) IV ONE
[2021-05-17] MEDS: CATHETER FLUSH 10 ML SYR IVP PRN ×2 (07:43→09:37)
[2021-05-17 09:30] VITALS: BP 100/86
--- NOTE | 2021-05-17 12:34 | Cardiology Stress Test Report ---
Stress Test Report Date of Procedure/Referring: Date of Procedure: May 17, 2021 Ghada Ray Admitting Physician No,Local Physician Indications: A Fib Baseline Heart Rate: 76 Baseline Blood Pressure: Blood Pressure Systolic: 100 Blood Pressure Diastolic: 86 Baseline Vitals Vital Signs Date Time Temp Pulse Resp B/P (MAP) Pulse Ox O2 Delivery O2 Flow Rate FiO2 05/17/21 09:30 74 20 100/86 (91) 97 Room Air Baseline EKG: Baseline EKG: NSR Summary After explaining the procedure to the patient, she signed a consent and then brought to the stress nuclear laboratory. Patient received 0.4 mg Lexiscan for stress test, ECG, heart rate and blood pressure were monitored continuously. Resting and stress dose of radio tracer were injected, imaging was acquired and reviewed in short axis, horizontal long axis and vertical long axis views. TID: 1.13 SSS: 7 SDS: 5 EF: 73 1. Patient tolerated Lexiscan well 2. Breast attenuation with reversible ischemia involving the mid to apical anterior wall and anterolateral wall 3. Normal left ventricular size, EF 73% LYNN MANRIQUEZ MD May 17, 2021 12:34
== END ==
LOC: CARD 08:00
PROVIDERS: ATTEND Physician Assistant
DX: I48.0 Paroxysmal atrial fibrillation (principal)
CPT/HCPCS: 78452; 93017; A9502

== ENCOUNTER 2021-06-02 08:00 | Day surgery (SDC) | payer BC ==
[2021-06-02] VITALS (10 sets, daily range): BP systolic 92–143; BP diastolic 55–68
[~2021-06-02] VITALS: Ht 152.4 cm; Wt 88.8 kg
[2021-06-02 07:40] LABS: HEMATOCRIT 50 % (35-52); HEMOGLOBIN 16.2 g/dL (11.5-16.0); MEAN CORPUSCULAR HEMOGLOBIN 31 pg (25-34); MEAN CORPUSCULAR HGB CONC 32 g/dL (32-36); MEAN CORPUSCULAR VOLUME 97 fL (80-99); MEAN PLATELET VOLUME 9.4 fL (9.0-12.2); PLATELET COUNT 317 10^3/uL (130-400); WHITE BLOOD COUNT 21.2 10^3/uL (4.3-11.0)
[2021-06-02 07:51] LABS: BILIRUBIN,URINE NEGATIVE (NEGATIVE); CLARITY,URINE CLEAR; COLOR,URINE YELLOW; GLUCOSE, URINE (UA) NEGATIVE (NEGATIVE); KETONES,URINE TRACE (NEGATIVE); LEUKOCYTE ESTERASE ,URINE NEGATIVE (NEGATIVE); NITRITE,URINE NEGATIVE (NEGATIVE); PH,URINE 5.5 (5-9); PROTEIN,URINE NEGATIVE (NEGATIVE)
[~2021-06-02 08:00] MED LIST changes: +HEParin (CATH LAB) 2,000 ML IV ONE; +HEParin 1000 UNIT/ML (10ML VIAL) FOR BOLUS ONE; +LIDOCAINE 1% INJ 50 ML (XYLOCAINE) VIAL ONE; +MIDAZOLAM 5 MG/5 ML (VERSED) VIAL ONE; +NITRO DRIP 25000 MCG/D5W 250 ML IV ONE; +NS IV 1000 ML 1,000 ML IV SCH; +NS IV 1000 ML 1,000 ML ONE; -REGADENOSON 0.4 MG/5 ML SYR (LEXISCAN) IV ONE; +VERAPAMIL 5 MG/2 ML (CALAN) VIAL IV ONE; +fentaNYL INJ 100 MCG/2 ML AMP ONE
[2021-06-02 08:01] LABS: BILIRUBIN,TOTAL 0.4 MG/DL (0.1-1.0); CALCIUM 9.8 MG/DL (8.5-10.1); CREATININE SERUM 0.74 MG/DL (0.60-1.30); POTASSIUM 4.5 MMOL/L (3.6-5.0); TOTAL PROTEIN 7.1 GM/DL (6.4-8.2)
--- NOTE | 2021-06-02 08:03 | Diagnostic Imaging Report ---
INDICATION: Hypertension. Abnormal stress test. EXAMINATION: Chest 06/02/2021 FINDINGS: The cardiomediastinal silhouette is unremarkable. The pulmonary vasculature is within normal limits. The lungs and pleural spaces are clear. IMPRESSION: No evidence of an acute cardiopulmonary process. Dictated by: Dictated on workstation # [id number]
[2021-06-02 08:04] LABS: BACTERIA,URINE MODERATE /HPF; WBC,URINE 0-2 /HPF
[2021-06-02 08:05] LABS: CALCIUM OXALATE CRYSTALS,UR LARGE /LPF; HCG,QUALITATIVE URINE NEGATIVE (NEGATIVE)
--- NOTE | 2021-06-02 08:19 | Conscious Sedation/ASA ---
Conscious Sedation Pre-Proced Time 08:19 ASA Score 3 For ASA 3 and 4: Consider anesthesia and medical clearance. Also, for patients with a history of failed moderate sedation consider anesthesia. Airway Lungs Heart ASA score ASA 1: a normal healthy patient ASA 2: a patient with a mild systemic disease (mid diabetes, controlled hypertension, obesity x ASA 3: a patient with a severe systemic disease that limits activity (angina, COPD, prior Myocardial infarction) ASA 4: a patient with an incapacitating disease that is a constant threat to life (CHF, renal failure) ASA 5: a moribund patient not expected to survive 24 hrs. (ruptured aneurysm) ASA 6: a declared brain- patient whose organs are being harvested. For emergent operations, add the letter E after the classification Mallampati Classification Grade 3 Sedation Plan Analgesia, Amnesia, Plan communicated to team members, Discussed options with patient/fam, Discussed risks with patient/fam The patient is an appropriate candidate to undergo the planned procedure, sedation, and anesthesia. The patient immediately re-assessed prior to indication. LYNN MANRIQUEZ MD Jun 02, 2021 08:19
[2021-06-02 08:21] LABS: INR 0.9 (0.8-1.4); PROTHROMBIN TIME PATIENT 12.5 SEC (12.2-14.7)
[2021-06-02] MEDS ORDERED: FLUO40CA12 PO (08:24)
[2021-06-02] MEDS ORDERED: OMEP40CA6 PO (08:24)
[2021-06-02] MEDS ORDERED: SPIR100T4 PO (08:24)
[2021-06-02] MEDS ORDERED: INSU100I32 SQ (08:24)
[2021-06-02] MEDS ORDERED: METO50TA7 PO (08:24)
[2021-06-02] MEDS ORDERED: L.AC1CAP6 PO (08:24)
[2021-06-02] MEDS ORDERED: armour thyroid PO (08:24)
[2021-06-02] MEDS ORDERED: ROSU10TA28 PO (08:24)
[2021-06-02] MEDS ORDERED: DULO60CA59 PO (08:24)
[2021-06-02] MEDS ORDERED: SOLU CORTEF PO (08:24)
[2021-06-02] MEDS ORDERED: HYDR-4164 PO (08:24)
[2021-06-02] MEDS ORDERED: PRD1T PO (08:24)
[2021-06-02] MEDS ORDERED: vitamin B12 IM (08:24)
[2021-06-02] MEDS ORDERED: INSU100I40 SQ (08:24)
[2021-06-02] MEDS ORDERED: OXYC13.5 PO (08:24)
[2021-06-02] MEDS ORDERED: [UNRECOGNIZED DRUG - OTHER] PO (08:24)
[2021-06-02] MEDS ORDERED: HYDR20TA24 PO (08:24)
[2021-06-02] MEDS ORDERED: LISI5TAB20 PO (08:24)
[2021-06-02] MEDS ORDERED: CHOL500010 PO (08:24)
[2021-06-02] MEDS ORDERED: AMPH20TA2 PO (08:24)
[2021-06-02] MEDS ORDERED: ARIP10TA57 PO (08:24)
[2021-06-02] MEDS ORDERED: PRED2TAB PO (08:24)
--- NOTE | 2021-06-02 08:51 | Discharge Inst-Post CATH ---
Discharge Inst-CATH/EP Problems Reviewed?: Yes Post Cardiac Cath/EP D/C Inst Follow Up/Plan Appointment with Dr. Badillo's office in 4 weeks <b>CARDIAC CATH/EP PROCEDURE DISCHARGE INSTRUCTIONS</b> ACTIVITY * Go Home directly and rest. * Limit activity of the leg (or wrist if it was used) for 7 days including aerobics, swimming, jogging, bicycling, etc. * Restrict stair-climbing for 7 days if possible, if not, climb up with your non-cath leg, then bring together on the same step. * Avoid lifting, pushing, pulling or excessive movement of the affected extremity for 7 days. * Customary sexual activity may be resumed after 2 days-use caution not to use a position that strains or causes pain to the affected extremity. * No driving for 24 hours. * NO SMOKING. * Avoid straining for bowel movements for 7 days. * Gentle walking on level ground is allowed. * Returning to work will depend on the type of procedure and the results. Your doctor will discuss this with you. CALL YOUR DOCTOR FOR ANY OF THE FOLLOWING: *If bleeding from the puncture site occurs- Apply gentle pressure to site with clean cloth and call your doctor or EMS. * If a knot or lump forms under the skin, increases in size, or causes pain. * If bruising appears to be worsening or moving further down your leg instead of disappearing. * Temperature above 101 F. CARE OF YOUR GROIN INCISION; * Bruising or purple discoloration of the skin near the puncture site is common. * You may shower only, no bathtub bathing for 5 days. Be careful to avoid slipping as your leg may feel stiff. * If a closure device was used on your femoral artery, please see the attached guide regarding care of the device and your leg. * Leave dressing on FOR 24 hours. CARE OF YOUR WRIST INCISION; * Bruising or purple discoloration of the skin near the puncture site is common. * You may shower. * DO NOT submerge wrist. * Leave dressing on FOR 24 hours. LYNN BADILLO MD Jun 02, 2021 08:51
--- NOTE | 2021-06-02 08:56 | Cardiac Cath Report ---
Cardiac Cath Report Physician (s)/Freight Car Builder (s) Physician LYNN MANRIQUEZ MD Pre-Procedure Diagnosis Pre-Procedure Diagnosis: Coronary artery disease Post-Procedure Note Procedure Start Date: Jun 02, 2021 Name of Procedure: Cardiac catheterization Findings/Procedure Note PROCEDURE NOTE: 50 years old lady with history of hypertension, hyperlipidemia, had abnormal stress test with anterior wall ischemia, scheduled for cardiac catheterization possible PTCA. After explaining the procedure to the patient, all pros and cons were explained, all questions were answered. The patient signed the consent and then she was placed on the cardiac catheterization laboratory. Groin was prepped SL fashion local anesthesia was used. Sheath placed in the right radial artery, [place] catheter was prolapsed to the left ventricular cavity, pressure was measured, pullback LV to aorta was done, engaged the right and left coronary system, angiogram was done. At the end of the procedure the sheath was removed. Vascular band was used FINDINGS: Hemodynamics LV 107/17, end-diastolic pressure of 17 Aorta 93/67 mean of 78 ANATOMY: Left Main is free of obstructive disease Left Anterior Descending is moderate in size with 40 to 50% stenosis at the mid LAD nonobstructive disease Left Circumflex is a very small artery with no obstructive disease Right Coronary Artery is large dominant artery with no obstructive disease LV Gram was not done, pressure was measured CONCLUSION: 1. 40 to 50% stenosis in the mid LAD nonobstructive disease 2. Otherwise nonobstructive disease in the coronary system with large dominant right coronary artery 3. Mildly elevated left ventricular end-diastolic pressure DISCUSSION AND RECOMMENDATION: Continue to maximize medical therapy, no intervention is required Patient was noted to have hematuria and leukocytosis, reported that she has chronic hematuria and leukocytosis. I gave her 1 g of Rocephin and discharged on nitrofurantoin 100 mg every 6 hours for 5 days Anesthesia Type: Conscious Sedation Estimated blood loss (mL): 10 ml Contrast Amount: 35 ml Total Radiation Dose: 398 mGy Post-Procedure Diagnosis Post-operative diagnosis: Chest pain Coronary artery disease Hypertension Hyperlipidemia LYNN MANRIQUEZ MD Jun 02, 2021 08:56
[2021-06-02] MEDS ORDERED: NS IV 1000 ML 1,000 ML IV SCH (09:00)
[2021-06-02] MEDS ORDERED: NITR100C PO (09:11)
[2021-06-02] MEDS ORDERED: cefTRIAXone 1 GM PRE-MIX 50 ML IV ONE (09:30)
== END 2021-06-02 11:55 | disposition home or self-care (01) ==
LOC: CATH 08:00 → SDC 09:01 → CATH 11:55
PROVIDERS: ATTEND Internal Medicine Cardiovascular Disease
DX: I25.10 Atherosclerotic heart disease of native coronary artery without angina pectoris (principal); I10 Essential (primary) hypertension; E78.5 Hyperlipidemia, unspecified; I48.0 Paroxysmal atrial fibrillation; E11.9 Type 2 diabetes mellitus without complications; K21.9 Gastro-esophageal reflux disease without esophagitis; M79.7 Fibromyalgia; E27.40 Unspecified adrenocortical insufficiency; F17.210 Nicotine dependence, cigarettes, uncomplicated; Z79.899 Other long term (current) drug therapy; Z79.4 Long term (current) use of insulin; Z79.84 Long term (current) use of oral hypoglycemic drugs
CPT/HCPCS: 71045; 80053; 80061; 81000; 84703; 85027; 85610; 85730; 87081; 87088; 93005; 93458; C1894; 36415

== ENCOUNTER 2021-06-30 05:29 | Outpatient (CLI) | payer BC ==
[~2021-06-30] VITALS: Ht 152.4 cm; Wt 86.2 kg
[~2021-06-30 05:29] MED LIST changes: +AMPH20TA2 PO; +ARIP10TA57 PO; +CHOL500010 PO; +DULO60CA59 PO; +FLUO40CA12 PO; -HEParin (CATH LAB) 2,000 ML IV ONE; -HEParin 1000 UNIT/ML (10ML VIAL) FOR BOLUS ONE; +HYDR-4164 PO; +HYDR20TA24 PO; +INSU100I32 SQ; +INSU100I40 SQ; +L.AC1CAP6 PO; -LIDOCAINE 1% INJ 50 ML (XYLOCAINE) VIAL ONE; +LISI5TAB20 PO; +METO50TA7 PO; -MIDAZOLAM 5 MG/5 ML (VERSED) VIAL ONE; +NITR100C PO; -NITRO DRIP 25000 MCG/D5W 250 ML IV ONE; -NS IV 1000 ML 1,000 ML IV SCH; -NS IV 1000 ML 1,000 ML ONE; +OXYC13.5 PO; +PRD1T PO; +PRED2TAB PO; +ROSU10TA28 PO; +SOLU CORTEF PO; +SPIR100T4 PO; -VERAPAMIL 5 MG/2 ML (CALAN) VIAL IV ONE; +[UNRECOGNIZED DRUG - OTHER] PO; +armour thyroid PO; -fentaNYL INJ 100 MCG/2 ML AMP ONE; +vitamin B12 IM
[2021-06-30] MEDS ORDERED: THYR60TA2 PO (09:53)
[2021-06-30] MEDS ORDERED: OXYC13.5 PO (09:53)
[2021-06-30] MEDS ORDERED: SAXA1TBM2 PO (09:53)
[2021-06-30] MEDS ORDERED: SEMA2.4P SQ (09:53)
== END 2021-06-30 09:58 | disposition home or self-care (01) ==
LOC: PREOP 05:29
PROVIDERS: ATTEND Surgery
DX: Z01.818 Encounter for other preprocedural examination (principal)

== ENCOUNTER 2021-07-07 08:41 | Day surgery (SDC) | payer BC ==
--- NOTE | 2021-06-30 08:13 | HISTORY AND PHYSICAL ---
DATE OF SERVICE: ATTENDING PRIMARY CARE PHYSICIAN: Krysta Mcknight APRN. HISTORY OF PRESENT ILLNESS: The patient is a 50-year-old female, who is known to us. She does have a multitude of medical issues. She has been seen for different gastrointestinal histories in the past. She was seen in 2019 for worsening reflux. On 01/03/2018, she underwent an EGD with biopsies and was found to have a reflux esophagitis stage II, small hiatal hernia that was 2 cm in size as well as a mild gastritis and duodenitis. Biopsies were negative for H. pylori as well as negative for Overton's esophagus. She then underwent a HIDA scan, which did show an ejection fraction of 54%. However, she did have reproduction of symptoms and this was consistent with a biliary dyskinesia. On 01/10/2018, she underwent a laparoscopic cholecystectomy. She was found to have hepatomegaly as well as distended gallbladder with thick mesentery. She was then seen again in 2019 for a symptomatic lesion of the superior left inner thigh. She did undergo excision of the lesion of the left inner thigh that was 6.4 cm in size and consistent with a lipoma. On today's visit, she reports that for the last 6 to 8 weeks, she has been having issues with increased bloating and abdominal pain usually after eating. She does have a history of constipation and also has irritable bowel syndrome and has been on medications in the past; however, due to her insurance, she has not been able to get these medications filled currently. 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 She denies any nausea or vomiting as well as no hematemesis or any coffee ground emesis. She also reports that she is in need of a screening colonoscopy and has had colonoscopy before in the past; however, this has been several years. She denies any family history of any colon cancer as well as no blood in her stool. PAST MEDICAL HISTORY: Type 2 diabetes, lupus, gastroesophageal reflux disease, fibromyalgia, anxiety, depression, hypertension, IBS, predominantly constipation, history of ulcerative colitis, upper extremity edema, atrial fibrillation, adrenal insufficiency, chronic pain, hypercholesterolemia, and hypothyroidism. PAST SURGICAL HISTORY: Cranial surgery for cervical dysplasia, tubal ligation in 1996, section x2 in 1991 and 1995, complete hysterectomy in 2014, C5-C7 spinal fusion and diskectomy in 2014, bilateral carpal tunnel release in 2014, laparoscopic cholecystectomy 01/10/2018, and excision of left inner thigh lipoma, 2019. ALLERGIES: No known drug allergies. MEDICATIONS: CoQ10 100 mg daily, Trulance 3 mg daily, Xtampza ER 13.5 mg q.12 hours, aripiprazole 10 mg b.i.d., brimonidine tartrate ophthalmic solution, lisinopril 5 mg b.i.d., metoprolol ER 50 mg daily, omeprazole 40 mg daily, Kombiglyze XR 2.5/100 mg daily, orphenadrine ER 100 mg two tablets daily, rosuvastatin 10 mg daily, [place] Thyroid 60 mg b.i.d., buspirone 30 mg, clonidine 0.1 mg b.i.d., amphetamine/dextroamphetamine 20 mg half to one tablet by mouth t.i.d., duloxetine 60 mg daily, fluoxetine 40 mg daily, hydrochlorothiazide 25 mg 1 to 2 tablets daily, spironolactone 100 mg 1 to 2 tablets daily, Wegovy 2.4 mg weekly, Eliquis 5 mg b.i.d., Dayvigo 5 mg at bedtime p.r.n., potassium chloride ER 10 mEq two capsules every other day, prednisone 1 mg four tablets by mouth t.i.d., hydrocortisone 20 mg one tablet by mouth q.6 hours p.r.n., and Solu-Cortef 100 mg take 200 mg IM daily as directed. SOCIAL HISTORY: Positive for tobacco smoke 4 to 5 cigarettes per day for 30 years. Rare for alcohol. FAMILY HISTORY: Paternal grandmother, diabetes, hypertension. Maternal grandmother, breast cancer, hypertension. Father, myocardial infarction. Mother, hypertension. Paternal grandfather, hypertension. Maternal grandfather, hypertension, myocardial infarction. Siblings, hypertension, myocardial infarction. REVIEW OF SYSTEMS: This is a well-nourished female in no acute distress. She is not experiencing any shortness of breath or difficulty breathing. No chest pain, palpitations or diaphoresis. No nausea, vomiting or abdominal pain. No diarrhea or constipation. She does report episodes of heartburn and reflux. She also reports alternating episodes of diarrhea and constipation. No red blood per rectum. No dark tarry stools. No fever or chills. No recent inadvertent weight loss. All other review of systems negative. PHYSICAL EXAMINATION: VITAL SIGNS: Blood pressure is 108/73. Current weight is 196 pounds at 5 feet 0 inches. CHEST: Clear. Good breath sounds bilaterally. HEART: Regular, no murmurs. EXTREMITIES: No lower extremity edema. Negative Homans sign. HEENT: No scleral icterus. NECK: No cervical lymphadenopathy. ABDOMEN: Soft, nontender, and nondistended. SKIN: Warm, dry, and pink. NEUROLOGIC: Awake, alert and oriented x3. 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 At this time, we will proceed with scheduling her for an EGD and a screening colonoscopy. The risks and benefits of the procedure as well as the procedure and home care instructions were explained to the patient. She verbalized understanding of instructions and agrees to proceed as planned. At this time, we will schedule her for an EGD with biopsies as appropriate as well as a screening colonoscopy. Job ID: [id number] DocumentID: [id number] Dictated Date: 06/25/2021 11:18:14 Manager House Date: 06/25/2021 12:11:31 Dictated By: ROSA HUTSON APRN
[~2021-07-07] VITALS: Ht 152 cm; Wt 86.2 kg
[~2021-07-07 08:41] MED LIST changes: +SAXA1TBM2 PO; +SEMA2.4P SQ; +THYR60TA2 PO
[2021-07-07] MEDS ORDERED: LACTATED RINGERS 1,000 ML IV ONE (08:51)
[2021-07-07] MEDS ORDERED: LACTATED RINGERS 1,000 ML IV STA (08:54)
[2021-07-07 09:00] VITALS: BP 122/77
[2021-07-07] MEDS ORDERED: HURRICAINE EXT TUBE (BENZOCAINE) XX PRN (09:00)
[2021-07-07] MEDS ORDERED: LIDOCAINE JELLY 2% 6 ML SYRINGE MM PRN (09:00)
[2021-07-07] MEDS ORDERED: MIDAZOLAM 2 MG/2 ML (VERSED) VIAL ONE (09:36)
[2021-07-07] MEDS ORDERED: PROPOFOL INJECTION 50 ML IV ONE (09:36)
--- NOTE | 2021-07-07 09:49 | Progress Note-Pre Operative ---
Pre-Operative Progress Note H&P Reviewed The H&P was reviewed, patient examined and no changes noted. Date Seen by Provider: Jul 07, 2021 Time Seen by Provider: : Date H&P Reviewed: Jul 07, 2021 Time H&P Reviewed: : Pre-Operative Diagnosis: GERD, screening colo TIMMY RANDOLPH MD Jul 07, 2021 09:49
[2021-07-07] MEDS ORDERED: PANT40TA2 PO (09:50)
--- NOTE | 2021-07-07 09:50 | Discharge Inst-Surgical ---
D/C Lap Instructions-KIDO New, Converted, or Re-Newed RX: RX on Chart Follow Up Activity as tolerated High Fiber Diet 25g or more per day Avoid Alcohol, Caffeine, Spicy [place] and Acid foods. Drink 64 fluid oz or more of fluids per day. Symptoms to Report: Fever over 101 degree F, Nausea/Vomiting If any problems/questions: Contact your physician or go to Emergency Room TIMMY RANDOLPH MD Jul 07, 2021 09:50
[2021-07-07] MEDS ORDERED: ONDANSETRON 4 MG (ZOFRAN) ORAL DISSOLVE TAB PO PRN (10:00)
[2021-07-07] MEDS ORDERED: ONDANSETRON 4 MG/2 ML (SDV) Z0FRAN IVP PRN (10:00)
[2021-07-07 10:40] VITALS: BP 90/51
--- NOTE | 2021-07-07 10:44 | Anesthesia-General Post-Op ---
MAC Patient Condition Mental Status/LOC: Same as Preop Cardiovascular: Satisfactory Nausea/Vomiting: Absent Respiratory: Satisfactory Pain: Controlled Complications: Absent Post Op Complications Complications None Follow Up Care/Instructions Patient Instructions None needed. Anesthesiology Discharge Order Discharge Order Patient is doing well, no complaints, stable vital signs, no apparent adverse anesthesia problems. JUSTIN ROMERO DO Jul 07, 2021 10:44
--- NOTE | 2021-07-07 10:56 | Progress Note-Post Operative ---
Post-Operative Progess Note Surgeon (s)/Refuse Driver (s) Surgeon TIMMY RANDOLPH MD Refuse Driver: none Pre-Operative Diagnosis GERD, screening colo Post-Operative Diagnosis reflux esophagitis(stage 3), small HH(2.5cm), moderate gastritis. mild chronic stage 2 ext and int hemorrhoids, mild chronic inflammation desc colon and rectum. Procedure & Operative Findings Date of Procedure 07/07/21 Procedure Performed/Findings EGD with bx. Colonoscopy with bx. Anesthesia Type mac Estimated Blood Loss Estimated blood loss (mL): minimal Specimens/Packing Specimens Removed ge jxn, antrum, desc colon, rectum TIMMY RANDOLPH MD Jul 07, 2021 10:56
[2021-07-07 11:00] VITALS: BP 102/60
[2021-07-07 11:10] VITALS: BP 102/60
--- NOTE | 2021-07-07 16:26 | OPERATIVE REPORT ---
DATE OF SERVICE: 07/07/2021 ATTENDING PRIMARY GRILL CHEF: Krysta Mcknight APRN. PREOPERATIVE DIAGNOSES: Gastroesophageal reflux disease and screening colonoscopy. POSTOPERATIVE DIAGNOSES: Reflux esophagitis, [place] class C, small hiatal hernia approximately 2.5 cm in size, moderate severity gastritis, chronic stage II external and internal hemorrhoids, mild chronic inflammatory changes of the rectum and descending colon. No ulcerations. PROCEDURES PERFORMED: EGD with biopsy and colonoscopy with biopsy. SURGEON: Timmy Randolph MD. ANESTHESIA: Monitored anesthesia care. ESTIMATED BLOOD LOSS: Minimal. FINDINGS: Reflux esophagitis, [place] class C, small hiatal hernia approximately 2.5 cm in size, moderate severity gastritis, chronic stage II external and internal hemorrhoids, mild chronic inflammatory changes of the rectum and descending colon. No ulcerations. DISPOSITION: The patient tolerated the procedure well. INDICATIONS FOR PROCEDURE: The patient is a 50-year-old female with multiple medical problems. She has a history of fibromyalgia, diabetes, lupus, irritable bowel syndrome as well as history of ulcerative colitis, atrial fibrillation, and adrenal insufficiency and she is on multitude of different medications. She states that for the past eight weeks, she has had abdominal bloating and epigastric pain after eating meals. She also does have a history of constipation and irritable bowel syndrome; however, also mentions a diagnosis of ulcerative colitis in the past as well. She is currently on a PPI acid story writer with omeprazole 40 mg daily. She is also in need of a screening colonoscopy. She has not had a colonoscopy up to this point in her life. DESCRIPTION OF PROCEDURE: The patient was brought to the endoscopy suite and laid in the left lateral decubitus position. After adequate IV pain and sedative medications and monitored anesthesia care, the mouthpiece was applied. The endoscope was placed in the mouth, visualizing the pharynx and hypopharyngeal region. Vocal cords, epiglottis, and vallecula were identified and appeared to be normal. The endoscope was then gently intubated, the esophageal opening and esophagus insufflated. The endoscope was then advanced to the first, second and third portion of esophagus. At the level of GE junction, a reflux esophagitis, [place] grade C was identified. A biopsy was taken with forceps with visualization of good hemostasis. The endoscope was then advanced in the stomach and endoscope retroflexed, visualizing a small hiatal hernia approximately 2.5 cm in size. There was a moderate gastritis, which was diffuse throughout the stomach. No formal ulcerations. A biopsy was taken of the antrum to rule out H. pylori with visualization of good hemostasis. The endoscope was then advanced to the pylorus and first and second portions of the duodenum, which appeared normal. The endoscope was then slowly withdrawn while taking a second look and suctioning of residual air with no additional findings. A digital rectal examination was performed, which revealed chronic stage II external and internal hemorrhoids, not actively edematous nor inflamed and no bleeding. Normal sphincter tone was felt and there were no palpable masses. The endoscope was then intubated into the anus and rectum gently insufflated. There was a poor colonic preparation. The endoscope was then advanced to the valves of [place] of the rectum as well as through the sigmoid, descending colon, where it appeared that a mild chronic inflammation was noted and a biopsy was taken of the rectum as well as the descending colon with forceps with visualization of good hemostasis. There were no ulcerative plaques identified. The endoscope was then advanced through the transverse, ascending colon to the cecum, which were normal. The endoscope was then slowly withdrawn while taking a second look and suctioning of residual air with no additional findings. The patient tolerated the procedure well. She does have a significant gastritis and reflux esophagitis, which may be related to dietary and lifestyle. We will recommend the necessary lifestyle changes including small and more frequent meals, avoidance of eating at night as well as head elevation while lying supine. She also needs to avoid caffeinated beverages, spicy, greasy and acidic foods; however, the acid production may also be related to her steroid use for her adrenal insufficiency. We will start her on Protonix 40 mg daily to be taken in addition to her omeprazole to be taken at a separate time during the day. We will also recommend a high fiber diet with incorporation of a fiber supplement, which should equal or exceed 25 grams daily as well as significant amounts of water to promote soft stools on a daily basis. If she is asymptomatic, she does not need another colonoscopy for another 10 years. Job ID: [id number] DocumentID: [id number] Dictated Date: 07/07/2021 10:42:24 Gender Studies Professor Date: 07/07/2021 16:26:15 Dictated By: TIMMY RANDOLPH MD
== END 2021-07-07 11:10 | disposition home or self-care (01) ==
LOC: ENDO 08:41
PROVIDERS: ATTEND Surgery
DX: Z12.11 Encounter for screening for malignant neoplasm of colon (principal); K21.00 Gastro-esophageal reflux disease with esophagitis, without bleeding; K44.9 Diaphragmatic hernia without obstruction or gangrene; K64.4 Residual hemorrhoidal skin tags; K64.1 Second degree hemorrhoids; K62.89 Other specified diseases of anus and rectum; K58.1 Irritable bowel syndrome with constipation; F17.210 Nicotine dependence, cigarettes, uncomplicated; Z79.899 Other long term (current) drug therapy
CPT/HCPCS: 82947

== ENCOUNTER → 2022-06-09 | Outpatient (CLI) | payer BC ==
[~2022-06-09] MED LIST changes: +PANT40TA2 PO
--- NOTE | 2022-06-09 15:03 | Diagnostic Imaging Report ---
INDICATION: Follow-up left breast density. COMPARISON: Prior mammogram from 02/09/2021. EXAMINATION: 2D and 3D bilateral diagnostic mammography was performed with CAD. FINDINGS: Scattered fibroglandular densities are identified, bilaterally. Tiny nodule previously noted in the left breast is similar to perhaps slightly smaller when compared with prior exam. No new mass is detected. No malignant-appearing microcalcifications are seen. Axillae are unremarkable. IMPRESSION: No mammographic feature suspicious for malignancy is identified. Dictated by: Dictated on workstation # [id number]
== END ==
LOC: RAD 13:37
PROVIDERS: ATTEND Nurse Practitioner Family
DX: N62 Hypertrophy of breast (principal)
CPT/HCPCS: 77066; G0279; 77062

== ENCOUNTER → 2022-11-15 | Outpatient (CLI) | payer BC ==
[~2022-11-15] MED LIST changes: -ORPH100T PO; +ORPH100T3 PO
[2022-11-15 11:59] LABS: ALBUMIN 3.7 GM/DL (3.2-4.5); BILIRUBIN,TOTAL 0.3 MG/DL (0.1-1.0); CREATININE SERUM 0.77 MG/DL (0.60-1.30); POTASSIUM 4.1 MMOL/L (3.6-5.0); TOTAL PROTEIN 6.5 GM/DL (6.4-8.2)
== END ==
LOC: LAB 10:58
PROVIDERS: ATTEND Internal Medicine Cardiovascular Disease
DX: R60.0 Localized edema (principal); E78.2 Mixed hyperlipidemia
CPT/HCPCS: 36415; 80053; 80061

== ENCOUNTER → 2022-12-30 | Outpatient (CLI) | payer BC | LOC: CARD 10:16 | PROVIDERS: ATTEND Physician Assistant | DX: I10 Essential (primary) hypertension (principal) | CPT/HCPCS: 93306 ==